=== PATIENT | female | born 1990 | race African-American/Black ===

== ENCOUNTER 2017-04-01 01:36 | Inpatient (IN) | payer OTHER ==
--- NOTE | 2017-04-01 03:17 | PDOC ---
Attending Attestation - Resident Resident Name: Xiomara Duckworth - ED Attending Attestation I have performed the following: I have examined & evaluated the patient, The case was reviewed & discussed with the resident, I agree w/resident's findings & plan, Exceptions are as noted - Physicial Exam PE: GENERAL: Awake, alert, and fully oriented. Appears uncomfortable. HEAD: No signs of trauma EYES: PERRLA, EOMI, sclera anicteric, conjunctiva clear ENT: Auricles normal inspection, hearing grossly normal, nares patent, oropharynx clear without exudates. Moist mucosa NECK: Normal ROM, supple, no lymphadenopathy, JVD, or masses LUNGS: +Splinting. Dec air entry due to splinting. Clear to auscultation bilaterally. No wheezes, and no crackles HEART: Regular rate and rhythm, normal S1 and S2, no murmurs, rubs or gallops ABDOMEN: Soft, nontender, normoactive bowel sounds. No guarding, no rebound. No masses EXTREMITIES: Normal range of motion, no edema. No clubbing or cyanosis. No cords, erythema, or tenderness NEUROLOGICAL: Cranial nerves II through XII grossly intact. Normal speech, normal gait SKIN: Warm, Dry, normal turgor, no rashes or lesions noted. - Medical Decision Making Pt approximately 5WGA with pleuritic L upper chest pain. She states the pain is worse if she coughs or takes a deep breath. No recent illness, fever, chills. Denies recent leg swelling. Patient is high risk for PE based on clinical eval. Discussed risks/benefits of CTA with patient, she agrees to the scan. <Yamilka Villalta - Last Filed: 04/01/17 03:53> - Resident Resident Name: Duckworth,Mary - [facility] HPI: 04/01/17 03:57 The patient is a 26 year old female, 5 weeks , G2A1, with a significant past medical history of seen in ED at [facility] yesterday (03/31) diagnosed with UTI, presenting to the Emergency Department with worsening chest pain and and LUQ abdominal pain since Saturday. She states the chest pain is constant and describes it as someone kneeling on her left chest, 10/10 in intensity, exacerbated by lying flat. She admits to one episode of palpitations this afternoon, and shortness of breath. She states that she went to [facility] yesterday for similar complaints, and only was worked up for a UTI as per urinalysis. She also admits to vaginal spotting. The patient has been taking tylenol for the pain with little relief. Her most recent ultrasound, 03/31, showed a sac in correct position. The patient denies lower extremity swelling or pain. Patient denies recent injury or immobilization. Patient denies dysuria, or vaginal discharge. Patient denies fever, cough, and chills. Patient denies nausea, vomiting, and diarrhea. GENERAL/CONSTITUTIONAL: No fever or chills. No weakness. HEAD, EYES, EARS, NOSE AND THROAT: No change in vision. No ear pain or discharge. No sore throat. GASTROINTESTINAL: No nausea, vomiting, diarrhea or constipation. GENITOURINARY: + vaginal spotting. No dysuria, frequency, or change in urination. CARDIOVASCULAR: + left chest pain, + palpitations, + shortness of breath. RESPIRATORY: No cough, wheezing, or hemoptysis. MUSCULOSKELETAL: No joint or muscle swelling or pain. No neck or back pain. SKIN: No rash NEUROLOGIC: No headache, vertigo, loss of consciousness, or change in strength/ sensation. ENDOCRINE: No increased thirst. No abnormal weight change. HEMATOLOGIC/LYMPHATIC: No anemia, easy bleeding, or history of blood clots. ALLERGIC/IMMUNOLOGIC: No hives or skin allergy. - Medical Decision Making 04/01/17 03:58 Documentation prepared by Soila Shaffer, acting as medical scheduler for Yamilka Villalta MD. <Soila Shaffer - Last Filed: 04/01/17 03:58>
--- NOTE | 2017-04-01 03:46 | PDOC ---
History of Present Illness - General Chief Complaint: Pain Stated Complaint: DIFFICULTY BREATHING Time Seen by Provider: 04/01/17 03:13 History Source: Patient Exam Limitations: No Limitations - History of Present Illness Initial Comments: This is a 26 yo female at 5 weeks 3 days who presents c/o left- sided chest pain and LUQ abdominal pain and shortness of breath. She had the onset of pain and shortness of breath simultaneously on Saturday night, and this awoke her from sleep. It is 10/10, feels like someone is kneeling on her chest, is constant and worsening and radiating to the left back. It worsens when she tries to lay down flat. She has taken only Tylenol for the pain and has never had pain like this before. She was seen at [facility] ED for the same thing yesterday night, at which time they did an ultrasound and also did a UA and diagnosed her with a UTI. They gave her one antibiotic pill in the department but did not prescribe her a home medication. She notes mild nausea, vaginal spotting, and possibly a small amount of blood in the urine. She denies any fever, chills, vomiting, diarrhea, constipation, burning on urination, vaginal discharge, black or bloody stool. She denies any h/o blood clotting problems, recent injury/surgery/immobility/travel, or leg pain/swelling. Past History - Past Medical History Allergies/Adverse Reactions: Allergies Allergy/AdvReac Type Severity Reaction Status Date / Time No Known Allergies Allergy Verified 04/01/17 02:04 Home Medications: Ambulatory Orders NK [No Known Home Medication] 04/01/17 Other medical history: Pt denies - Reproductive History Is Patient Now?: Yes (5 weeks) (#): 2 Para: 0 Therapeutic (s) & number: Yes (1) - Psycho/Social/Smoking Cessation Hx Suicidal Ideation: No Smoking History: Never smoked Information on smoking cessation initiated: No Hx Alcohol Use: No Drug/Substance Use Hx: No Substance Use Type: None Review of Systems - Review of Systems Constitutional: No: Chills, Fever, Unexplained wgt Loss HEENTM: No: Nose Congestion, Throat Pain Respiratory: Yes: Shortness of Breath. No: Cough Cardiac (ROS): Yes: Chest Pain. No: Palpitations ABD/GI: Yes: Nausea. No: Constipated, Diarrhea, Vomiting : Yes: Flank Pain, Hematuria, Other (vaginal spotting). No: Burning, Dysuria Musculoskeletal: Yes: Back Pain (left upper). No: Neck Pain Integumentary: No: Bruising, Rash Neurological: No: Headache, Numbness, Tingling, Weakness, Dizziness Endocrine: No: Unexplained Weight Gain, Unexplained Weight Loss *Physical Exam - Vital Signs Last Vital Signs Temp Pulse Resp BP Pulse Ox 99.0 F 99 H 20 149/70 99 04/01/17 02:04 04/01/17 02:04 04/01/17 02:04 04/01/17 02:04 04/01/17 02:04 - Physical Exam General Appearance: Yes: Nourished, Appropriately Dressed, Moderate Distress, Other (appears uncomfortable, splinting left chest with arms, able to converse) HEENT: positive: EOMI, Normal Voice, Hearing Grossly Normal. negative: Scleral Icterus (R), Scleral Icterus (L), Nasal Congestion Neck: positive: Trachea midline, Supple. negative: Tender, Rigid Respiratory/Chest: positive: Lungs Clear, Normal Breath Sounds, Other ( tachypneic but speaking in full sentences, minimal tenderness to palpation along left anterior and lateral costal margin). negative: Crackles, Rhonchi, Stridor, Wheezing Cardiovascular: positive: Regular Rhythm, Regular Rate. negative: Murmur Gastrointestinal/Abdominal: positive: Normal Bowel Sounds, Soft, Other (minimal epigastric and RUQ tenderness to palpation). negative: Tender, Organomegaly, Pulsatile Mass, Guarding Musculoskeletal: positive: Normal Inspection. negative: Decreased Range of Motion, Vertebral Tenderness Extremity: positive: Normal Capillary Refill, Normal Inspection, Normal Range of Motion. negative: Tender, Cyanosis Integumentary: positive: Normal Color, Dry, Warm. 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, Fully Oriented, Alert, Normal Mood/ Affect, Normal Response, Motor Strength 5/5 Heart Score/ECG Review - History History: Slightly suspicious - Electrocardiogram EKG: Normal - Age Age: </= 45 - Risk Factors Based on the list above the patient has:: No risk factors known - Troponin Troponin: </= normal limit - Score Heart Score - Total: 0 #1 ECG reviewed & interpreted by me at: 04:45 NSR, rate of 90, normal axis and intervals ED Treatment Course - LABORATORY CBC & Chemistry Diagram: 04/01/17 03:55 04/01/17 03:55 Medical Decision Making - Medical Decision Making 26 yo female at 5 weeks 3 days p/w left chest pain, LUQ pain, and shortness of breath. No recent immobility, injury, or surgery, no leg pain/swelling, no h/o clots. Exam notable for tachycardia, shallow rapid breathing, tenderness to palpation left chest wall. Also epigastric and RUQ mild ttp. DDX includes PE, UTI/pyelo, renal colic, PNA, pneumothorax, pancreatitis, gastritis. Ordered is CBCD, CMP, troponin, lipase, type&screen, PT/INR, UA w/ cx, Quant hCG , Chest CTA. Also ordered is IV Tylenol for pain control. WBC is 15.3, INR is 1.36, hCG is 9892, otherwise labs unremarkable, trop neg. EKG shows sinus tachycardia (rate of 90) without other acute abnormalities. The patient remains painful/tender with VS abnormalities. Suspicion for PE is high enough that the decision is made she must have chest CTA. BUN/Cr are wnl and the patient is sent to CT soon before sign out. Pt signed out to [facility] excellent Dr. Vishnu López. *DC/Admit/Observation/Transfer Diagnosis at time of Disposition: Pulmonary emboli Qualifiers: Qualified Code(s): I26.99 - Other pulmonary embolism without acute cor pulmonale - Referrals - Attestations Physician Attestion: 04/01/17 05:22 I, Dr. Xiomara Duckworth, attest that this document has been prepared under my direction and personally reviewed by me in its entirety. I further attest, that it accurately reflects all work, treatment, procedures and medical decision -making performed by me.
[2017-04-01] MEDS ORDERED: ACETAMINOPHEN 1000 MG/100 ML VIAL (NON FORMULARY) IVPB ONE ×2 (03:47→11:42)
[2017-04-01 04:03] LABS: BASOPHIL 0.4 % (0-2.0); EOSINOPHIL 0.5 % (0-4.5); MCH 28.3 pg (25.7-33.7); MCHC 33.7 g/dl (32.0-36.0); MEAN PLT VOLUME 7.2 fl (7.5-11.1); PLATELET COUNT 352 K/MM3 (134-434); RDW 14.3 % (11.6-15.6); WHITE BLOOD COUNT 15.3 K/mm3 (4.0-10.0)
[2017-04-01 04:20] LABS: INR 1.36 (0.82-1.09); PROTHROMBIN TIME (PATIENT) 15.1 SEC (9.98-11.88)
[2017-04-01 04:31] LABS: ALBUMIN 3.3 g/dl (3.4-5.0); ANION GAP 9 (8-16); BILIRUBIN,TOTAL 0.5 mg/dL (0.2-1.0); CALCIUM 8.5 mg/dL (8.5-10.1); CO2 26 mmol/L (21-32); CREATININE 0.7 mg/dL (0.55-1.02); GLUCOSE,RANDOM 112 mg/dL (74-106); SGOT/AST 7 U/L (15-37); SGPT/ALT 14 U/L (12-78); TOT PROT 7.1 g/dl (6.4-8.2)
[2017-04-01 04:34] LABS: ALK PHOS 69 U/L (45-117); TROPONIN I < 0.02 ng/ml (0.00-0.05)
[2017-04-01] MEDS ORDERED: ACETAMINOPHEN INJECTION 100 ML IVPB ONE ×2 (04:37→11:44)
[2017-04-01 05:44] LABS: URINE APPEARANCE CLEAR; URINE BILIRUBIN NEGATIVE (NEGATIVE); URINE BLOOD 3+ (NEGATIVE); URINE COLOR LT. YELLOW; URINE GLUCOSE (UA) NEGATIVE (NEGATIVE); URINE KETONE 2+ (NEGATIVE); URINE NITRITE NEGATIVE (NEGATIVE); URINE PROTEIN NEGATIVE (NEGATIVE); URINE UROBILINOGEN 0.2 mg/dL (0.2-1.0)
[2017-04-01 05:46] LABS: URINE LEUK ESTERASE 1+ (NEGATIVE)
[2017-04-01 06:31] LABS: URINE HYALINE CAST 1 /lpf; URINE MUCUS MANY; URINE RBC 2 /hpf (0-3); URINE WBC 28 /hpf (3-5)
--- NOTE | 2017-04-01 07:53 | PDOC ---
*Physical Exam - Vital Signs Last Vital Signs Temp Pulse Resp BP Pulse Ox 99.0 F 99 H 20 149/70 99 04/01/17 02:04 04/01/17 02:04 04/01/17 02:04 04/01/17 02:04 04/01/17 02:04 - Physical Exam General Appearance: Yes: Nourished, Mild Distress (pain, difficulty breathing) HEENT: positive: EOMI Respiratory/Chest: positive: Labored Respiration, Decreased Breath Sounds ( bilaterally), Other (Patient sitting still, avoiding movement). negative: Crackles, Wheezing, Hyperresonant, Dullness, Plerual Rub Cardiovascular: positive: Regular Rhythm, Regular Rate Female Pelvic Exam: positive: normal external exam, cervical os closed, normal size ovaries, vaginal bleeding (moderate blood in vaginal vault). negative: lesions, adnexal tenderness Gastrointestinal/Abdominal: negative: Tender, Distended, Guarding Rectal Exam: positive: normal exam, normal rectal tone, other (no jen blood) Musculoskeletal: positive: Normal Inspection Extremity: positive: Normal Inspection Integumentary: positive: Normal Color, Dry, Warm. 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 yellow Urine Appearance Clear Urine pH 6.0 Urine Protein Negative Urine Glucose (UA) Negative Urine Ketones 2+ H Urine Blood 3+ H Urine Nitrite Negative Urine Bilirubin Negative Urine Urobilinogen 0.2 Ur Leukocyte Esterase 1+ H Urine RBC 2 Urine WBC 28 Ur Epithelial Cells Few Hyaline Casts 1 Urine Mucus Many Blood Type B POSITIVE Antibody Screen Negative 04/01/17 04/01/17 03:55 03:55 INR Sodium 135 L Potassium 3.9 Chloride 100 Carbon Dioxide 26 Anion Gap 9 BUN 5 L Creatinine 0.7 Creat Clearance w eGFR > 60 Random Glucose 112 H Calcium 8.5 Total Bilirubin 0.5 AST 7 L ALT 14 Alkaline Phosphatase 69 Troponin I < 0.02 Total Protein 7.1 Albumin 3.3 L Lipase 78 Beta HCG, Quant 9892.2 Urine Color Urine Appearance Urine pH Urine Protein Urine Glucose (UA) Urine Ketones Urine Blood Urine Nitrite Urine Bilirubin Urine Urobilinogen Ur Leukocyte Esterase Urine RBC Urine WBC Ur Epithelial Cells Hyaline Casts Urine Mucus Blood Type Antibody Screen 04/01/17 03:55 RBC 4.25 MCV 84.0 MCHC 33.7 RDW 14.3 MPV 7.2 L Neutrophils % 83.0 H Lymphocytes % 10.5 Monocytes % 5.6 Eosinophils % 0.5 Basophils % 0.4 - RADIOLOGY Radiograph Interpretation: [id number] CT/CHEST CTA CT angiogram of the chest: HISTORY: Pleuritic chest pain. Tachycardia. High risk for pulmonary embolism. CT angiogram of the chest was performed with intravenous contrast. 90 cc of Omnipaque 350 was administered intravenously. Axial images were obtained from the thoracic inlet through the lung bases utilizing pulmonary embolism protocol. Coronal and sagittal reconstructions are also provided. There are acute bilateral pulmonary emboli predominantly involving proximal, mid , and distal lower lobe pulmonary vessels. Many of the pulmonary emboli are occlusive. There is a pulmonary infiltrate in the left lower lobe which could reflect pulmonary infarction. Small to moderate left pleural effusion is noted as well. IMPRESSION: Bilateral acute pulmonary emboli as described above. Pulmonary infiltrate in the left lower lobe which could represent pulmonary infarction. See above. [id number] US/TRANSVAGINAL US PREG HISTORY PROVIDED: evaluation. Real time examination of the pelvis utilizing both the transabdominal and transvaginal probes demonstrates the following: There is a single, live intrauterine with crown-rump measurements corresponding to a gestational age of 5 weeks 6 days. The gestational sac is within the lower uterine segment and the possibility of an impending , particularly in light of the history of vaginal bleeding, should be considered. A low heart rate of 91 BPM was calculated. The bradycardia may be related to technical difficulties in evaluating the heart rate during this early stage of . Clinical correlation and follow-up is again advised. The ovaries are normal in size and texture with arterial flow documented to both ovaries. There is a small cyst within the left ovary measuring 1.7 x 1.5 x 2.4 cm. There is no evidence of adnexal masses or free pelvic fluid collections. IMPRESSION: Single, live intrauterine of 5 weeks 6 days gestational age. The gestational sac is within the lower uterine segment and there is a low heart rate. The possibility of impending should be considered. Clinical correlation and follow-up recommended. Please see above discussion. - Medications Given in the ED: ED Medications Discontinued Medications Generic Name Dose Route Start Last Admin Trade Name Teresa PRN Reason Stop Dose Admin Acetaminophen 1,000 mg 04/01/17 03:47 04/01/17 04:39 Ofirmev Injection - IVPB 04/01/17 03:48 1,000 mg ONCE ONE Administration Progress Note - Progress Note Progress Note: Patient is stable @ 5w3d received by sign-out from Xiomara Duckworth who presented with left chest pain and difficulty breathing. Patient was also tachycardic and found to have an elevated WBC A CTA was performed and shows a left lower lobe consolidation suspected to be PNA Wait official CTA results, +/- US Appropriate abx for based on CTA read - (outpt: amox/augmentum + axithro, inpt: ceftri/cefotaz + azithro) Medical Decision Making - Medical Decision Making 04/01/17 07:52 26 yo @ 5w3d with CP and SOB for 3 days and possible left lower lobe PNA by unofficial read but also concerning for possible PE Wait results +/- US Pain control Consider admission pending results 04/01/17 08:08 Patient complaining of increased sob and pain, pain management with Tylenol 04/01/17 08:09 CTA was positive for acute bilateral PE and pulmonary infiltrate in the left lower lobe 04/01/17 08:17 Patient endorsed recent vaginal bleeding (1 hr prior to presenting), prefer AC is heparin for quick reversal Consulted control tower radio operator (Dr. Jones) regarding use of heparin vs Lovenox who did not prefer one over the other and indicated the priority should be on treating the mother. Patient is stable but having increased pain Patient put back on monitor EKG Started Heparin infusion Morphine Repeat vitals PTT 04/01/17 08:[address] Madsen who approved admission to [facility] 04/01/17 08:50 Completed a pelvic exam, moderate blood in the vaginal vault, cervix closed, no adenexal masses. Performed transthoracic/transabdominal ultrasounds, no concerning signs for right heart strain, good contractility, questionable intrauterine gestational sack, no yoke sack visualized, no RUQ free fluid Performed rectal exam for occult blood - per heparin protocol - no jen blood 04/01/17 10:33 Reevaluated patient, stated her pain is coming back but is bearable at this time Patient sent for transvaginal US. 04/01/17 11:36 US shows single IUP with low heart rate, possibility of impending . 04/01/17 11:51 Patient C/O increased pain. Tylenol and Morphine Patient sent to floor *DC/Admit/Observation/Transfer Diagnosis at time of Disposition: Pulmonary emboli Qualifiers: Pulmonary embolism type: other Chronicity: acute Acute cor pulmonale presence: without acute cor pulmonale Qualified Code(s): I26.99 - Other pulmonary embolism without acute cor pulmonale - Discharge Dispostion Admit: Yes - Referrals - Patient Instructions - Post Discharge Activity
[2017-04-01] MEDS ORDERED: KETOROLAC TROMETHAMINE 60 MG/2 ML VIAL ONE (08:03)
[2017-04-01] MEDS ORDERED: diazePAM 5 MG TABLET ONE (08:03)
[2017-04-01] MEDS ORDERED: HEPARIN NA (PORCINE) 5,000 UNITS/ML 1ML VIAL IVPUSH PRN (08:15)
[2017-04-01] MEDS ORDERED: morphine CARPU-JECT 4 MG/1 ML DISP.SYRIN IVPUSH ONE ×2 (08:17→11:49)
[2017-04-01] MEDS ORDERED: HEPARIN NA (PORCINE) 5,000 UNITS/ML 1ML VIAL ONE (08:27)
[2017-04-01] MEDS ORDERED: HEPARIN INFUSION - 500 ML IVPB ONE (08:27)
[2017-04-01] MEDS ORDERED: morphine CARPU-JECT 4 MG/1 ML DISP.SYRIN ONE ×2 (08:28→11:51)
[2017-04-01] MEDS: HEPARIN INFUSION - 500 ML IVPB SCH ×3 (08:34→21:16)
--- NOTE | 2017-04-01 08:36 | PDOC ---
*Physical Exam - Vital Signs Last Vital Signs Temp Pulse Resp BP Pulse Ox 99.0 F 99 H 20 149/70 99 04/01/17 02:04 04/01/17 02:04 04/01/17 02:04 04/01/17 02:04 04/01/17 02:04 - Physical Exam General Appearance: Yes: Nourished HEENT: positive: Normal ENT Inspection Neck: positive: Trachea midline Respiratory/Chest: positive: Lungs Clear, Other (tachypnea) Cardiovascular: positive: Regular Rhythm, Regular Rate, S1, S2 Musculoskeletal: positive: Normal Inspection Neurologic: positive: Fully Oriented, Alert, Normal Mood/Affect Heart Score/ECG Review #1 General ECG Interpretation: Sinus Rhythm, Normal Rate (83bpm), Normal Intervals , No acute ischemic changes (q wave III, flat T wave III,) Compared to previous ECG there are: Previous ECG unavail ED Treatment Course - LABORATORY CBC & Chemistry Diagram: 04/01/17 03:55 04/01/17 03:55 - ADDITIONAL ORDERS Additional order review: Laboratory Results 04/01/17 04/01/17 04/01/17 05:30 03:55 03:55 INR 1.36 H Sodium Potassium Chloride Carbon Dioxide Anion Gap BUN Creatinine Creat Clearance w eGFR Random Glucose Calcium Total Bilirubin AST ALT Alkaline Phosphatase Troponin I Total Protein Albumin Lipase Beta HCG, Quant Urine Color Lt. yellow Urine Appearance Clear Urine pH 6.0 Urine Protein Negative Urine Glucose (UA) Negative Urine Ketones 2+ H Urine Blood 3+ H Urine Nitrite Negative Urine Bilirubin Negative Urine Urobilinogen 0.2 Ur Leukocyte Esterase 1+ H Urine RBC 2 Urine WBC 28 Ur Epithelial Cells Few Hyaline Casts 1 Urine Mucus Many Blood Type B POSITIVE Antibody Screen Negative 04/01/17 04/01/17 03:55 03:55 INR Sodium 135 L Potassium 3.9 Chloride 100 Carbon Dioxide 26 Anion Gap 9 BUN 5 L Creatinine 0.7 Creat Clearance w eGFR > 60 Random Glucose 112 H Calcium 8.5 Total Bilirubin 0.5 AST 7 L ALT 14 Alkaline Phosphatase 69 Troponin I < 0.02 Total Protein 7.1 Albumin 3.3 L Lipase 78 Beta HCG, Quant 9892.2 Urine Color Urine Appearance Urine pH Urine Protein Urine Glucose (UA) Urine Ketones Urine Blood Urine Nitrite Urine Bilirubin Urine Urobilinogen Ur Leukocyte Esterase Urine RBC Urine WBC Ur Epithelial Cells Hyaline Casts Urine Mucus Blood Type Antibody Screen 04/01/17 03:55 RBC 4.25 MCV 84.0 MCHC 33.7 RDW 14.3 MPV 7.2 L Neutrophils % 83.0 H Lymphocytes % 10.5 Monocytes % 5.6 Eosinophils % 0.5 Basophils % 0.4 - RADIOLOGY Radiology Studies Ordered: Category Date Time Status TRANSVAGINAL US PREG [US] Stat Ultrasound 04/01/17 07:19 Ordered - Medications Given in the ED: ED Medications Discontinued Medications Generic Name Dose Route Start Last Admin Trade Name Teresa PRN Reason Stop Dose Admin Acetaminophen 1,000 mg 04/01/17 03:47 04/01/17 04:39 Ofirmev Injection - IVPB 04/01/17 03:48 1,000 mg ONCE ONE Administration Medical Decision Making - Medical Decision Making 04/01/17 08:33 pt signed out to me at 7 am. briefly ( 1 prior ab) here at 5 weeks ( no prior ectopic , no h/o prior PE or dvt) pt awaiting ct results for pleuritic cp. ct positive for multiple lower lobes PE. ekg performed. noted 83 bpm, q1ukuwxced t wave III, otherwise unremarkable. started on heparin ( vs. lovenox ) due to reported vaginal bleeding. pt /ptt sent. will perform bedside TTE r/.o RV strain. will admit to hospitalist. d/w dr enciso. also consulted OB cirilli 04/01/17 09:30 PE: pt much more comfortable with morphine. oxygen saturation 100 percent. pelvic exam performed with Dr López, blood in vaginal vault, no clots. cervix open mm, no adnexal tendernes.s no CMT. focused ED TTE performed, indication Ro RV strain finding: four views of heart obtained, ( parasternal long and short, subxiphoid and apical) no signs of rv enlargement or rv strain. good contractility of LV no pericardial effusion impression: normal TTE, no RV enlargement or strain. bedside transabdominal OB uterus with fluid, possible gestational sac, no yolk sac visible, left incidental adnexal cyst no free fluid. ruq no free fluid impression: no visible IUP, recommend TVUS followup. *DC/Admit/Observation/Transfer Diagnosis at time of Disposition: Pulmonary emboli - Referrals - Patient Instructions - Post Discharge Activity
[2017-04-01 12:56] VITALS: BMI 28.8
[2017-04-01] MEDS ORDERED: ACETAMINOPHEN 325 MG TABLET (FP) PO PRN ×2 (15:04→17:18)
--- NOTE | 2017-04-01 15:43 | CONSULT ---
Consult - text type - Consultation Consultation Note: This is a 26 yo female at 5 weeks 3 days who presents c/o left- sided chest pain and LUQ abdominal pain and shortness of breath. She had the onset of pain and shortness of breath simultaneously on Saturday night, and this awoke her from sleep. It is 10/10, feels like someone is kneeling on her chest, is constant and worsening and radiating to the left back. It worsens when she tries to lay down flat. She has taken only Tylenol for the pain and has never had pain like this before. She was seen at [facility] ED for the same thing yesterday night, at which time they did an ultrasound and also did a UA and diagnosed her with a UTI. They gave her one antibiotic pill in the department but did not prescribe her a home medication. She notes mild nausea, vaginal spotting, and possibly a small amount of blood in the urine. She denies any fever, chills, vomiting, diarrhea, constipation, burning on urination, vaginal discharge, black or bloody stool. She denies any h/o blood clotting problems, recent injury/surgery/immobility/travel, or leg pain/swelling. Past History 1 in 2014 Allergies/Adverse Reactions: Allergies Allergy/AdvReac Type Severity Reaction Status Date / Time No Known Allergies Allergy Verified 04/01/17 02:04 Home Medications: Ambulatory Orders NK [No Known Home Medication] 04/01/17 - Psycho/Social/Smoking Cessation Hx Smoking History: Never smoked Family - Vital Signs Last Vital Signs Temp Pulse Resp BP Pulse Ox 98.6 F 72 20 131/69 100 04/01/17 12:47 04/01/17 12:47 04/01/17 12:47 04/01/17 12:47 04/01/17 12:56 Cor: RSR, No murmurs, No gallops Lungs: decreased lt. breath sounds at base Abd: Soft, Normal bowel sounds, No organomegaly Ext:No significant edema Abnormal Lab Results 04/01/17 04/01/17 04/01/17 03:55 03:55 03:55 WBC 15.3 H MPV 7.2 L Neutrophils % 83.0 H INR 1.36 H Sodium 135 L BUN 5 L Random Glucose 112 H AST 7 L Albumin 3.3 L Urine Ketones Urine Blood Ur Leukocyte Esterase 04/01/17 05:30 WBC MPV Neutrophils % INR Sodium BUN Random Glucose AST Albumin Urine Ketones 2+ H Urine Blood 3+ H Ur Leukocyte Esterase 1+ H A/P 26 y/o patient with Lt. sided chest pain/SOB , diagnosed with bilateral LL PE Provoked Vaginal spotting 5 weeks change management specialist to f/u Discussed with will continue heparin drip and titrate per protocol monitor respiratory status, bleeding based on clinical course, may need to be switched to lovenox based on discharge if unable to anticoagulate will need to consider ivc filter monitor
[2017-04-01] MEDS: HEPARIN NA (PORCINE) 5,000 UNITS/ML 1ML VIAL IVPUSH PRN (16:33)
[2017-04-01] MEDS: ACETAMINOPHEN 650 MG/20.3 ML ORAL SOLUTION (CUPS) PO PRN ×2 (17:24→23:23)
--- NOTE | 2017-04-01 18:38 | CONSULT ---
Consult - Past Medical History ...LMP: 02/15/17 ...: Yes (5 weeks) - Alcohol/Substance Use Hx Alcohol Use: Yes (1 week ago) - Smoking History Smoking history: Never smoked Have you smoked in the past 12 months: Yes Aproximately how many cigarettes per day: 5 If you are a former smoker, when did you quit?: X5 DAYS AGO Home Medications - Allergies Allergies/Adverse Reactions: Allergies Allergy/AdvReac Type Severity Reaction Status Date / Time No Known Allergies Allergy Verified 04/01/17 02:04 - Home Medications Home Medications: Ambulatory Orders NK [No Known Home Medication] 04/01/17 Physical Exam Vital Signs: Vital Signs Temperature 98.6 F 04/01/17 12:47 Pulse Rate 72 04/01/17 12:47 Respiratory Rate 20 04/01/17 12:47 Blood Pressure 131/69 04/01/17 12:47 O2 Sat by Pulse Oximetry (%) 100 04/01/17 12:56 Assessment/Plan VAscular Surgery This is a 26 yo female at 5 weeks 3 days who presents c/o left- sided chest pain and LUQ abdominal pain and shortness of breath. She had the onset of pain and shortness of breath simultaneously on Saturday night, and this awoke her from sleep. It is 10/10, feels like someone is kneeling on her chest, is constant and worsening and radiating to the left back. It worsens when she tries to lay down flat. She has taken only Tylenol for the pain and has never had pain like this before. She was seen at [facility] ED for the same thing yesterday night, at which time they did an ultrasound and also did a UA and diagnosed her with a UTI. They gave her one antibiotic pill in the department but did not prescribe her a home medication. She notes mild nausea, vaginal spotting, and possibly a small amount of blood in the urine. She denies any fever, chills, vomiting, diarrhea, constipation, burning on urination, vaginal discharge, black or bloody stool. She denies any h/o blood clotting problems, recent injury/surgery/immobility/travel, or leg pain/swelling. PE head - NC/At Lung - CTA , complains of pain in left chest. Heart - RRR abd - soft,nt,nd ext - soft, no calf tenderness. A/P Pt 5 weeks now with PE On IV heparin. may need to be changed to lovenox upon DC. ethernet network architect eval. Will order bilateral lower ext duplex to rule out DVt for complete workup. Cont IV heparin for now Iftikhar Last DO
--- NOTE | 2017-04-01 20:33 | HP ---
Admitting History and Physical - Primary Care Physician PCP: Monserrat Madsen - Admission History of Present Illness: 26 year old female, 5 weeks , G2A1, with a significant past medical history of seen in ED at [facility] yesterday (03/31) diagnosed with UTI, presenting to the Emergency Department with worsening chest pain and and LUQ abdominal pain since Saturday. She states the chest pain is constant and describes it as someone kneeling on her left chest, 10/10 in intensity, exacerbated by lying flat. She admits to one episode of palpitations this afternoon, and shortness of breath. She states that she went to [facility] yesterday for similar complaints, and only was worked up for a UTI as per urinalysis. She also admits to vaginal spotting. The patient has been taking tylenol for the pain with little relief. Her most recent ultrasound, 03/31, showed a sac in correct position. The patient denies lower extremity swelling or pain. Patient denies recent injury or immobilization. Patient denies dysuria, or vaginal discharge. Patient denies fever, cough, and chills. Patient denies nausea, vomiting, and diarrhea. - Past Medical History ...LMP: 02/15/17 ...: Yes (5 weeks) - Smoking History Smoking history: Never smoked Have you smoked in the past 12 months: Yes Aproximately how many cigarettes per day: 5 If you are a former smoker, when did you quit?: X5 DAYS AGO - Alcohol/Substance Use Hx Alcohol Use: Yes (1 week ago) Home Medications - Allergies Allergies/Adverse Reactions: Allergies Allergy/AdvReac Type Severity Reaction Status Date / Time No Known Allergies Allergy Verified 04/01/17 02:04 - Home Medications Home Medications: Ambulatory Orders NK [No Known Home Medication] 04/01/17 Physical Examination Vital Signs: Vital Signs Temperature 98.6 F 04/01/17 12:47 Pulse Rate 72 04/01/17 12:47 Respiratory Rate 20 04/01/17 12:47 Blood Pressure 131/69 04/01/17 12:47 O2 Sat by Pulse Oximetry (%) 100 04/01/17 12:56 Constitutional: Yes: No Distress HENT: Yes: Atraumatic Neck: Yes: Supple Cardiovascular: Yes: Regular Rate and Rhythm Respiratory: Yes: CTA Bilaterally Gastrointestinal: Yes: Normal Bowel Sounds Extremities: Yes: WNL Neurological: Yes: Alert, Oriented
--- NOTE | 2017-04-01 20:53 | PN ---
Teaching Attending Note Name of Resident: Harpreet Sanchez ATTENDING PHYSICIAN STATEMENT I saw and evaluated the patient. I reviewed the resident's note and discussed the case with the resident. I agree with the resident's findings and plan as documented. SUBJECTIVE: 26F at 5W 3 Days gestation who presented with chest pain. Pain was located on her left side and has associated abdominal pain. Also, noticed associated shortness of breath. Abdominal pain was located on her left side. Pain began Saturday night and awoke her from sleep. States pain feels like someone is kneeling on her chest. States she was recently at [facility] yesterday night, where she was diagnosed with a UTI. Has small amounts of blood in her urine and has associated nausea. No fevers or chills, no vomiting or diarrhea. Denies any recent travel, injuries, or surgeries. Denies any family history of clotting disorders. States she ambulates well at home and is not immobile for long periods of time. OBJECTIVE: Physical: VS: Vital Signs Period Temp Pulse Resp BP Sys/Louis Pulse Ox Last 24 Hr 98.6 F-99.0 F 72-99 20-22 122-149/69-71 99-100 GEN: NAD, Resting in bed HEENT: NCAT, PERRL CARD: RRR S2, S2 RESP: CTAB ABD: BSX4, NTD to palpation EXT: - C/C/E CTA: Bilateral acute PE involving proximal, mid, and distal lower lobe. Many of ASSESSMENT AND PLAN: 26 who presents with L. sided chest pain and shortness of breath, found to have bilateral PE and UTI 1.) Provoked PE in setting of - C/W Hep. gtt - Lovenox upon d/c - FU LE Duplex - ECHO complete 2.) UTI - Ucx - Ceftriaxone 3.) 5W3D - Guidance Consultant on consult - Monitor close for bleeding Place in Obs
[2017-04-01] MEDS ORDERED: CEFTRIAXONE 1 GM in DEXTROSE 5%-WATER - 50 ML IVPB ONE (22:00)
--- NOTE | 2017-04-01 22:04 | PN ---
Progress Note, Physician History of Present Illness: 26yo F G2A1 who is about 5 weeks seen for L sided nonradiating chest pain that started a day ago. When the pain started, patient began to be SOB and the pain would be exacerbated by deep breathing. Pt notes going to [facility] ED who discharged her for UTI only. Pt was seen in this ED for the same pain and was found to - Current Medication List Current Medications: Active Medications Acetaminophen (Tylenol Oral Solution -) 650 mg PO Q6H PRN PRN Reason: FEVER OR PAIN Last Admin: 04/01/17 17:24 Dose: 650 mg Heparin Sodium (Porcine) (Heparin -) 1,000 unit IVPUSH PRN PRN PRN Reason: Heparin Last Admin: 04/01/17 16:33 Dose: 1,000 unit Heparin Sodium (Porcine) (Heparin -) 5,000 unit IVPUSH PRN PRN PRN Reason: Heparin Last Admin: 04/01/17 08:34 Dose: 5,000 unit Heparin Sodium/Dextrose (Heparin Infusion -) 500 mls @ 20 mls/hr IVPB TITR RANDOLPH ; 1,000 UNITS/HR PRN Reason: Protocol Last Admin: 04/01/17 21:16 Dose: 22 mls/hr Ceftriaxone Sodium 1 gm/ (Dextrose) 50 mls @ 100 mls/hr IVPB ONCE ONE Stop: 04/01/17 22:29 - Objective Vital Signs: Vital Signs Temperature 98.6 F 04/01/17 12:47 Pulse Rate 72 04/01/17 12:47 Respiratory Rate 20 04/01/17 12:47 Blood Pressure 131/69 04/01/17 12:47 O2 Sat by Pulse Oximetry (%) 100 04/01/17 12:56 Labs: INR, PTT INR 1.36 (0.82-1.09) H 04/01/17 03:55
[2017-04-01] MEDS ORDERED: cefTRIAXone SODIUM 1 GM VIAL ONE (22:28)
[2017-04-01] MEDS ORDERED: DEXTROSE 5%-WATER - 50 ML IVPB ONE (22:28)
--- NOTE | 2017-04-01 22:28 | HP ---
Admitting History and Physical - Primary Care Physician PCP: Dr. Marcelo - Admission Chief Complaint: CP and SOB History of Present Illness: 26 yo G2A1 F who is 5 weeks presents with L-sided, non-radiating, severe CP, SOB, and LUQ pain. Pt describes the chest pain as 10/10 and like an elephant is sitting on her chest. She notes the pain starting on Saturday03/29/17 and developing the SOB at the same time. She says the pain is exacerbated by lying flat and with non-shallow breathing. Pt states she was seen at [facility] ED on 03/31, however was only discharged with the diagnosis of UTI. Pt does not report being discharged with any PO antibiotics for treatment of her UTI. Pt notes the pain did not go away and became increasingly worse so she came to this facility. Pt denies any bleeding or clotting disorders, long travel trips by car or by plane, lower extremity swelling or pain, dysuria, vaginal discharge , n/v/d/c, and recent surgeries. Pt also reports vaginal spotting recently. She received an ultrasound 03/31 showing a sac in correct position and nothing of concern. ER Course notable for: 1) B-HCG of 9892 consistent with current 2) UA consistent with UTI 3) Tranvaginal ultrasound showing a live intrauterine consistent with 5weeks 4) EKG - NSR at a rate of 83. Q-wave noted in lead III, no ST abnormalities seen. 5) Chest CTA revealing b/l acute pulmonary emboli involving proximal, mid, and distal lower lobe vessels; pleural effusions noted History Source: Patient Limitations to Obtaining History: No Limitations - Past Medical History ...LMP: 02/15/17 ...: Yes (5 weeks) - Smoking History Smoking history: Former smoker Have you smoked in the past 12 months: Yes Aproximately how many cigarettes per day: 5 (Quit with ) If you are a former smoker, when did you quit?: X5 DAYS AGO - Alcohol/Substance Use Hx Alcohol Use: Yes (1 week ago) - Social History History of Recent Travel: No Home Medications - Allergies Allergies/Adverse Reactions: Allergies Allergy/AdvReac Type Severity Reaction Status Date / Time No Known Allergies Allergy Verified 04/01/17 02:04 - Home Medications Home Medications: Ambulatory Orders NK [No Known Home Medication] 04/01/17 Physical Examination Vital Signs: Vital Signs Temperature 98.6 F 04/01/17 12:47 Pulse Rate 72 04/01/17 12:47 Respiratory Rate 20 04/01/17 12:47 Blood Pressure 131/69 04/01/17 12:47 O2 Sat by Pulse Oximetry (%) 100 04/01/17 12:56 Constitutional: Yes: Well Nourished, Mild Distress Cardiovascular: Yes: Regular Rate and Rhythm, S1, S2. No: Murmur Respiratory: Yes: Regular, On Nasal O2 (NC 2L), Other (Upper breath sounds without wheezing or rhonchi, hard to assess due to pain with increased depth of breathing.). No: Accessory Muscle Use Gastrointestinal: Yes: Soft. No: Tenderness Extremities: No: Calf Tenderness, Erythema Edema: No Peripheral Pulses WNL: Yes Neurological: Yes: Alert, Oriented Psychiatric: Yes: Alert, Oriented Imaging - Results Chest X-ray: Image Reviewed Cat Scan: Report Reviewed, Image Reviewed Assessment/Plan 26yo F G2A1 currently with 5week fetus seen for CP, SOB, found to have multiple PE's on CTA. Pt has already been initiated on Heparin drip 1) PE --Most likely related to high estrogen state from and previous smoking --No history of clotting disorders in family or pt and first episode of PE --Will have pt follow-up for blood work-up on outpatient basis --Echocardiogram ordered to assess any cardiac strain --Continue Heparin drip per protocol; aPTT assessment per protocol --Cannot use Warfarin due to risk --Will need to transition to Lovenox once aPTT is at therapeutic level for outpatient treatment --Pain control; limited to 650mg Tylenol due to risk --Duplex of b/l Lower extremities ordered; will f/u --Dr. Last and Dr. Vailente consults reviewed; appreciate recommendations 2) UTI --Ceftriaxone 1gm IV administered --Will transition to PO at a later point --Urine Cx pending; will f/u 3) 5weeks 3 days --Executive Officer Special Warfare Team consult --Monitor for bleeding/worsening of spotting --Avoid teratogenic agents FEN: Fluids: Not needed currently Electrolyte abnormalities: None Nutrition: Regular as tolerated Dispo: Admit; continue current management on M/S floor Visit type - Emergency Visit Emergency Visit: No - New Patient This patient is new to me today: Yes Date on this admission: 04/02/17 - Critical Care Critical Care patient: No
[2017-04-02] MEDS: HEPARIN INFUSION - 500 ML IVPB SCH ×3 (06:37→19:29)
[2017-04-02] MEDS: ACETAMINOPHEN 650 MG/20.3 ML ORAL SOLUTION (CUPS) PO PRN ×2 (07:17→22:02)
--- NOTE | 2017-04-02 10:06 | PN ---
Physical Exam: SUBJECTIVE: Patient seen and examined, reports pleuritic chest pain and mild vaginal bleeding OBJECTIVE: patient is a 26 y/o female, 5 weeks gestation, g2,p0,a1, she was admitted from the emergency department for bilateral pulmonary embolism. Vital Signs Period Temp Pulse Resp BP Sys/Louis Pulse Ox Last 24 Hr 98.2 F-98.6 F 72-98 20-20 122-142/67-75 100-100 GENERAL: The patient is awake, alert, and fully oriented, in no acute distress. HEAD: Normal with no signs of trauma. EYES: PERRL, extraocular movements intact, sclera anicteric, conjunctiva clear. No ptosis. ENT: Ears normal, nares patent, oropharynx clear without exudates, moist mucous membranes. NECK: Trachea midline, full range of motion, supple. LUNGS: Breath sounds equal, clear to auscultation bilaterally, diminished to base, shallow breathing, rr 24, no wheezes, no crackles, no accessory muscle use. HEART: Regular rate and rhythm, S1, S2 without murmur, rub or gallop. ABDOMEN: Soft, nontender, nondistended, normoactive bowel sounds, no guarding, no rebound, no hepatosplenomegaly, no masses. EXTREMITIES: 2+ pulses, warm, well-perfused, no edema. NEUROLOGICAL: Cranial nerves II through XII grossly intact. Normal speech, gait not observed. PSYCH: Normal mood, normal affect. SKIN: Warm, dry, normal turgor, no rashes or lesions noted Laboratory Results - last 24 hr 04/01/17 04/01/17 14:45 19:59 PTT (Actin FS) 47.1 H D 55.3 H Active Medications Generic Name Dose Route Start Last Admin Trade Name Freq PRN Reason Stop Dose Admin Acetaminophen 650 mg 04/01/17 17:19 04/02/17 07:17 Tylenol Oral Solution - PO 650 mg Q6H PRN Administration FEVER OR PAIN Heparin Sodium (Porcine) 1,000 unit 04/01/17 08:15 04/01/17 16:33 Heparin - IVPUSH 1,000 unit PRN PRN Administration Heparin Heparin Sodium (Porcine) 5,000 unit 04/01/17 08:15 04/01/17 08:34 Heparin - IVPUSH 5,000 unit PRN PRN Administration Heparin Heparin Sodium/Dextrose 500 mls @ 20 mls/hr 04/01/17 08:15 04/02/17 06:37 Heparin Infusion - IVPB 22 mls/hr TITR RANDOLPH Administration Protocol 1,000 UNITS/HR Microbiology 04/01/17 05:30 Urine - Urine Clean Catch Urine Culture - Final Contaminated: Please Repeat IMAGING cta of chest: billateral pulmonary emboli, pulmonary infilitrate in left lower lobe ? 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 - New Patient This patient is new to me today: Yes Date on this admission: 04/02/17 - Critical Care Critical Care patient: No - Discharge Referral Referred to [facility] Med P.C.: No
--- NOTE | 2017-04-02 11:21 | CON.PULM ---
Consult Consult Specialty:: PULMONARY Referred by:: CHRIS Hanson Reason for Consultation:: pulmonary emboli - History of Present Illness Chief Complaint: chest pain History of Present Illness: 26yo female 5 weeks who was admitted with sudden onset of shortness of breath and left sided chest pain starting 4 days ago. She had gone to another ER , where they diagnosed her with a UTI and discharged. Reports increased shortness of breath and reduced exercise tolerance. Chest pain worse with inspiration. CTA chest performed showing bilateral pulmonary emboli. Duplex negative for DVT. She denies fevers, chills or sweats. No cough or wheezing. No personal history of clots but reports a prior miscarriage and her mother has had miscarriages as well. No hormone therapy, she smoked cigarettes up until 2 weeks ago. Denies leg swelling or pain. Denies any prolonged immobilization. - History Source History Provided By: Patient, Medical Record Limitations to Obtaining History: No Limitations - Past Medical History ...LMP: 02/15/17 ...: Yes (5 weeks) - Alcohol/Substance Use Hx Alcohol Use: Yes (1 week ago) - Smoking History Smoking history: Former smoker Have you smoked in the past 12 months: Yes Aproximately how many cigarettes per day: 5 (Quit with ) If you are a former smoker, when did you quit?: X5 DAYS AGO - Social History History of Recent Travel: No Home Medications - Allergies Allergies/Adverse Reactions: Allergies Allergy/AdvReac Type Severity Reaction Status Date / Time No Known Allergies Allergy Verified 04/01/17 02:04 - Home Medications Home Medications: Ambulatory Orders NK [No Known Home Medication] 04/01/17 Family Disease History - Family Disease History Other Family History: no history of clots, mother with miscarriage Review of Systems - Review of Systems Constitutional: denies: Chills, Fever Eyes: denies: Recent Change in Vision HENT: denies: Nasal Congestion, Throat Pain Neck: denies: Stiffness, Tenderness Cardiovascular: reports: Chest Pain, Palpitations, Shortness of Breath Respiratory: reports: SOB, SOB on Exertion. denies: Cough, Hemoptysis, Wheezing Gastrointestinal: denies: Abdominal Pain, Nausea, Vomiting Genitourinary: denies: Dysuria, Hematuria Neurological: denies: Dizziness, Headache Endocrine: denies: Unexplained Weight Gain, Unexplained Weight Loss Physical Exam Vital Sings: Vital Signs Temperature 98.5 F 04/02/17 09:15 Pulse Rate 85 04/02/17 09:15 Respiratory Rate 20 04/02/17 09:15 Blood Pressure 122/69 04/02/17 09:15 O2 Sat by Pulse Oximetry (%) 100 04/01/17 21:00 Constitutional: Yes: Mild Distress (mildly tachypneic at rest) Eyes: Yes: Conjunctiva Clear, EOM Intact HENT: Yes: Atraumatic, Normocephalic Neck: Yes: Supple, Trachea Midline Cardiovascular: Yes: Tachycardia Respiratory: Yes: Diminished (decreased, poor effort), Other (shallow breaths) ...Clubbing: No Gastrointestinal: Yes: Normal Bowel Sounds, Soft. No: Tenderness Extremities: No: Calf Tenderness Edema: No Neurological: Yes: Alert, Oriented Imaging - Results Cat Scan: Report Reviewed, Image Reviewed (bilateral pulmonary emboli with LLL infiltrate) Problem List - Problems (1) Pulmonary emboli Code(s): I26.99 - OTHER PULMONARY EMBOLISM WITHOUT ACUTE COR PULMONALE Qualifiers: Pulmonary embolism type: other Chronicity: acute Acute cor pulmonale presence: without acute cor pulmonale Qualified Code(s): I26.99 - Other pulmonary embolism without acute cor pulmonale (2) 5 weeks gestation of Code(s): Z3A.01 - LESS THAN 8 WEEKS GESTATION OF (3) Vaginal bleeding in Code(s): O46.90 - ANTEPARTUM HEMORRHAGE, UNSPECIFIED, UNSPECIFIED TRIMESTER (4) Pulmonary infarct Code(s): I26.99 - OTHER PULMONARY EMBOLISM WITHOUT ACUTE COR PULMONALE Assessment/Plan Bilateral Pulmonary Emboli Likely Pulmonary Infarct 5 weeks Vaginal Bleeding - continue anticoagulation - echocardiogram - can defer antibiotics - DIVE MASTER eval for bleeding - monitor H/H - may need IVC filter if unable to anticoagulate due to bleeding - incentive spirometry - pain control - will need hypercoagulable work up as outpt Thank you for this consult Burak Barone MD
[2017-04-02] MEDS ORDERED: morphine CARPU-JECT 4 MG/1 ML DISP.SYRIN IVPUSH ONE ×2 (11:45→14:00)
--- NOTE | 2017-04-02 12:03 | PN ---
Progress Note (short form) - Note Progress Note: Patient seen and examined. No overnight events She mentions that she does continue to have mild vaginal spotting and she mentioned that she was told that there is a possibility that the might not hold. She does have pleuritic chest pain on the left side No hemoptysis. O/E: Young woman in no acute distress RRR Poor inspiratory effort No abd tenderness No LE swelling AAOx3. Last Vital Signs Temp Pulse Resp BP Pulse Ox 98.5 F 85 20 122/69 100 04/02/17 09:15 04/02/17 09:15 04/02/17 09:15 04/02/17 09:15 04/01/17 21:00 Current Medications Generic Name Dose Route Start Last Admin Trade Name Freq PRN Reason Stop Dose Admin Acetaminophen 650 mg 04/01/17 17:19 04/02/17 07:17 Tylenol Oral Solution - PO 650 mg Q6H PRN Administration FEVER OR PAIN Heparin Sodium (Porcine) 1,000 unit 04/01/17 08:15 04/01/17 16:33 Heparin - IVPUSH 1,000 unit PRN PRN Administration Heparin Heparin Sodium (Porcine) 5,000 unit 04/01/17 08:15 04/01/17 08:34 Heparin - IVPUSH 5,000 unit PRN PRN Administration Heparin Heparin Sodium/Dextrose 500 mls @ 20 mls/hr 04/01/17 08:15 04/02/17 11:38 Heparin Infusion - IVPB Not Given TITR RANDOLPH Protocol 1,000 UNITS/HR CBC, BMP 04/01/17 03:55 04/01/17 03:55 INR, PTT INR 1.36 (0.82-1.09) H 04/01/17 03:55 Assessment/Plan: Acute bilateral PE first trimester with mild vaginal bleeding . -likely provoked -has a 11week loss with the prior , will order APS labs, if LA positive or anti-bodies positive , will need a confirmatory in 12weeks -will continue with heparin with PTT monitoring, would suggest not to change to lovenox yet as she has vaginal spotting and ? status of the fetus -will continue heparin drip and titrate per protocol -monitor respiratory status, bleeding -considering her young age, preg loss earlier, though she has risk factors for provoked, OP hypercoag w/u recommended -LE doppler negative for DVT -if unable to anticoagulate will need to consider ivc filter -Seen by Pulm/Vascular consults ,appreciated recs -TTE -OBGYN f/u Will follow. discussed with Hospitalist.
[2017-04-02] MEDS ORDERED: ACETAMINOPHEN 1000 MG/100 ML VIAL (NON FORMULARY) IVPB ONE (13:58)
[2017-04-02] MEDS: HEPARIN NA (PORCINE) 5,000 UNITS/ML 1ML VIAL IVPUSH PRN (14:06)
[2017-04-02] MEDS ORDERED: morphine CARPU-JECT 4 MG/1 ML DISP.SYRIN ONE (16:32)
[2017-04-03] MEDS: ACETAMINOPHEN 650 MG/20.3 ML ORAL SOLUTION (CUPS) PO PRN (03:55)
[2017-04-03] MEDS: HEPARIN INFUSION - 500 ML IVPB SCH ×4 (03:55→22:36)
[2017-04-03] MEDS ORDERED: ACETAMINOPHEN 650 MG/20.3 ML ORAL SOLUTION (CUPS) PO PRN (08:12)
[2017-04-03 08:18] LABS: MCH 27.9 pg (25.7-33.7); MCHC 33.2 g/dl (32.0-36.0); MEAN CELL VOLUME 83.9 fl (80-96); MEAN PLT VOLUME 7.6 fl (7.5-11.1); PLATELET COUNT 421 K/MM3 (134-434); RDW 14.7 % (11.6-15.6); WHITE BLOOD COUNT 17.1 K/mm3 (4.0-10.0)
--- NOTE | 2017-04-03 08:21 | PN ---
Physical Exam: SUBJECTIVE: Patient seen and examined this AM. No acute overnight events. Pt states she is feeling sligthly better, still has L sided CP, pleuritic. Has not noticed more vaginal bleeding today. Denies new headache, leg pain, epigastric pain, blurry vision, numbness, tingling, nausea, vomiting. Pt complaining of gas pain. COMMERCIAL COLLECTOR to see patient today. OBJECTIVE: Vital Signs Period Temp Pulse Resp BP Sys/Louis Pulse Ox Last 24 Hr 98.5 F-99.4 F 85-96 20-40 122-141/62-87 98-99 GEN: AAOx3, Pt had cold compress on her head, NAD, lokos more comfortable than yesterday HEENT: PERRLA, EOMi, no LAD LUNG: CTABL, no labored breathing CV: S1, S2, RRR, no murmurs, TTp in L chest ABD: Soft, TTP, pt complains of gas, nondistended, normoactive BS EXT: 2+ pulses, no edema NEURO: CN 2-12, no sensory and muscular deficits, no facial droop. Laboratory Results - last 24 hr 04/02/17 04/02/17 11:45 17:45 PTT (Actin FS) 42.7 H 72.0 H D Active Medications Generic Name Dose Route Start Last Admin Trade Name Teresa PRN Reason Stop Dose Admin Acetaminophen 650 mg 04/03/17 08:12 Tylenol Oral Solution - PO Q4H PRN FEVER OR PAIN Heparin Sodium (Porcine) 1,000 unit 04/01/17 08:15 04/02/17 14:06 Heparin - IVPUSH 1,000 unit PRN PRN Administration Heparin Heparin Sodium (Porcine) 5,000 unit 04/01/17 08:15 04/01/17 08:34 Heparin - IVPUSH 5,000 unit PRN PRN Administration Heparin Heparin Sodium/Dextrose 500 mls @ 20 mls/hr 04/01/17 08:15 04/03/17 03:55 Heparin Infusion - IVPB 24 mls/hr TITR RANDOLPH Administration Protocol 1,000 UNITS/HR ASSESSMENT/PLAN: 26yo F A1 currently with 5week fetus seen for CP, SOB. CTA chest shows billateral pulmonary emboli, pulmonary infilitrate in left lower lobe - possible ? pulm infarct. Pt has already been initiated on Heparin drip # Bilateral PE - Negative BLLE dopplers - Pending echo - Continue heparin - monitor vag bleeding, if severe possible IVC filter, trend H/H - PO Tylenol, consider IV Tylenol and IV morphine - Heme/Onc - f/u APLA Ab (personal + fam hx), if positive, needs confirmatory in 12 weeks - Heme/Onc suggests not changing to lovenox due to spotting and ? status - clinical education manager input appreciated - Pt needs outpatient hypercoag workup - Pulmonary - Agree w/ the plan # UTI - repeat urine culture ordered, first contaminated - continue rocephin 1 gm iv # Low HR - TV ultrasound reviewed, pt made aware of low heart rate - appreciate CROWN BLOCKER input # FEN: - Fluids: Not needed currently - Electrolyte abnormalities: None - Nutrition: Regular as tolerated # Prophylaxis - DVT: On heparin drip - GI: Not needed - Deconditioning: PT on hold for now until patient feels better, order when pt improves # Dispo - Continue heparin, if bleeding worsens --> IVC filter - Await clinical education manager reccs on outpatient anticoag + pain control - Await APLA
[2017-04-03] MEDS ORDERED: morphine CARPU-JECT 4 MG/1 ML DISP.SYRIN ONE (08:41)
[2017-04-03] MEDS ORDERED: morphine CARPU-JECT 4 MG/1 ML DISP.SYRIN IVPUSH ONE (08:45)
--- NOTE | 2017-04-03 08:46 | CON.OBG ---
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 She was diagnosed with PE and Heparin started. Patient denies any significant family history. She admits to one prior . She was seen this morning, she has a nasal canula in place; she c/o chest pain. - History Source History Provided By: Patient Limitations to Obtaining History: No Limitations - Past Medical History ...LMP: 02/15/17 ...: Yes (5 weeks) - Past Surgical History Past Surgical History: Yes: None - Alcohol/Substance Use Hx Alcohol Use: No History of Substance Use: reports: None - Smoking History Smoking history: Never smoked Have you smoked in the past 12 months: Yes Aproximately how many cigarettes per day: 5 (Quit with ) If you are a former smoker, when did you quit?: X5 DAYS AGO - Social History Usual Living Arrangement: Alone History of Recent Travel: No Home Medications - Allergies Allergies/Adverse Reactions: Allergies Allergy/AdvReac Type Severity Reaction Status Date / Time No Known Allergies Allergy Verified 04/01/17 02:04 - Home Medications Home Medications: Ambulatory Orders NK [No Known Home Medication] 04/01/17 Family Disease History - Family Disease History Family History: Unremarkable Other Family History: no history of clots, mother with miscarriage Review of Systems - Review of Systems Constitutional: reports: No Symptoms Eyes: reports: No Symptoms HENT: reports: No Symptoms Neck: reports: No Symptoms Cardiovascular: reports: No Symptoms Respiratory: reports: SOB Gastrointestinal: reports: No Symptoms Genitourinary: reports: Other (Bloody discharge) Breasts: reports: No Symptoms Reported Neurological: reports: No Symptoms Endocrine: reports: No Symptoms Hematology/Lymphatic: reports: No Symptoms Psychiatric: reports: No Symptoms Pain Intensity: 5 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 Vital Signs: Vital Signs Temperature 99.4 F 04/03/17 06:00 Pulse Rate 92 H 04/03/17 06:00 Respiratory Rate 34 H 04/03/17 06:00 Blood Pressure 131/62 04/03/17 06:00 O2 Sat by Pulse Oximetry (%) 99 04/02/17 21:00 Constitutional: Yes: Well Nourished Eyes: Yes: Conjunctiva Clear HENT: Yes: Atraumatic Neck: Yes: Supple Cardiovascular: Yes: Regular Rate and Rhythm Respiratory: Yes: Regular, CTA Bilaterally Gastrointestinal: Yes: Normal Bowel Sounds External Genitalia: Yes: Normal Internal Exam Deferred: Yes Vaginal Exam: Yes: Other (bloody discharge) Breast(s): Yes: WNL Neurological: Yes: Alert, Oriented Psychiatric: Yes: Alert, Oriented Labs: CBC, BMP 04/03/17 07:20 Assessment/Plan Pulmonary embolism IUP @ 6 weeks gestation Vaginal bleeding in R/O Threatened Miscarriage Transvaginal sonogram recommended Patient counseled about the high risk nature of the
[2017-04-03] MEDS: HEPARIN NA (PORCINE) 5,000 UNITS/ML 1ML VIAL IVPUSH PRN ×2 (09:52→22:36)
--- NOTE | 2017-04-03 10:55 | PN ---
Progress Note (short form) - Note Progress Note: PULMONARY Still with shortness of breath and pleuritic chest pain. Echocardiogram without significant findings. Denies further vaginal bleeding. Last Vital Signs Temp Pulse Resp BP Pulse Ox 99.4 F 92 H 34 H 131/62 99 04/03/17 06:00 04/03/17 06:00 04/03/17 06:00 04/03/17 06:00 04/02/17 21:00 Gen: anxious, tachypneic Heart: RRR Lung: shallow breaths Abd: soft, nontender Ext: no edema CBC, BMP 04/03/17 07:20 04/01/17 03:55 Active Medications Acetaminophen (Tylenol Oral Solution -) 650 mg PO Q4H PRN PRN Reason: FEVER OR PAIN Acetaminophen (Ofirmev Injection -) 1,000 mg IVPB Q6H PRN PRN Reason: FEVER OR PAIN Stop: 04/04/17 04:53 Heparin Sodium (Porcine) (Heparin -) 1,000 unit IVPUSH PRN PRN PRN Reason: Heparin Last Admin: 04/03/17 09:52 Dose: 1,000 unit Heparin Sodium (Porcine) (Heparin -) 5,000 unit IVPUSH PRN PRN PRN Reason: Heparin Last Admin: 04/01/17 08:34 Dose: 5,000 unit Heparin Sodium/Dextrose (Heparin Infusion -) 500 mls @ 20 mls/hr IVPB TITR RANDOLPH ; 1,000 UNITS/HR PRN Reason: Protocol Last Admin: 04/03/17 09:50 Dose: 26 mls/hr A/P Bilateral Pulmonary Emboli Likely Pulmonary Infarct 5 weeks Vaginal Bleeding - continue anticoagulation - defer antibiotics - for repeat transvaginal ultrasound - monitor H/H - may need IVC filter if unable to anticoagulate due to bleeding - incentive spirometry - pain control - will need hypercoagulable work up as outpt Problem List - Problems (1) Pulmonary emboli Code(s): I26.99 - OTHER PULMONARY EMBOLISM WITHOUT ACUTE COR PULMONALE Qualifiers: Pulmonary embolism type: other Chronicity: acute Acute cor pulmonale presence: without acute cor pulmonale Qualified Code(s): I26.99 - Other pulmonary embolism without acute cor pulmonale (2) 5 weeks gestation of Code(s): Z3A.01 - LESS THAN 8 WEEKS GESTATION OF (3) Vaginal bleeding in Code(s): O46.90 - ANTEPARTUM HEMORRHAGE, UNSPECIFIED, UNSPECIFIED TRIMESTER (4) Pulmonary infarct Code(s): I26.99 - OTHER PULMONARY EMBOLISM WITHOUT ACUTE COR PULMONALE
--- NOTE | 2017-04-03 11:51 | PN ---
Physical Exam: SUBJECTIVE: Patient seen and examined. Her pain is mildly tolerable, unable to move due to pain, she reports cough with phlegm this AM. Has not been eating. Events: - Denies vagina bleeding this morning OBJECTIVE: Vital Signs Period Temp Pulse Resp BP Sys/Louis Pulse Ox Last 24 Hr 98.8 F-99.4 F 88-96 20-40 131-141/62-87 98-99 PE Neuro: alert, awake, cn 2-12intact, anxious, in pain Pulm: tachypnea, shallow breaths, + nc CV: s1 s2 rrr no mrg Abd: s nt nd + bs Ext: no le edema, calf pain, MSK: left sided chest tenderness spans from clavicle to substernal Laboratory Results - last 24 hr 04/02/17 04/02/17 04/03/17 11:45 17:45 07:20 WBC 17.1 H RBC 4.10 Hgb 11.4 Hct 34.4 MCV 83.9 MCH 27.9 MCHC 33.2 RDW 14.7 Plt Count 421 MPV 7.6 PTT (Actin FS) 42.7 H 72.0 H D 04/03/17 04/03/17 07:20 07:20 PTT (Actin FS) 44.7 H D LA PTT Baseline Pending dRVVT Confirm Interp Pending dRVVT Mixing Study Pending Active Medications Generic Name Dose Route Start Last Admin Trade Name Treesa PRN Reason Stop Dose Admin Acetaminophen 650 mg 04/03/17 08:12 Tylenol Oral Solution - PO Q4H PRN FEVER OR PAIN Acetaminophen 1,000 mg 04/03/17 10:52 Ofirmev Injection - IVPB 04/04/17 04:53 Q6H PRN FEVER OR PAIN Heparin Sodium (Porcine) 1,000 unit 04/01/17 08:15 04/03/17 09:52 Heparin - IVPUSH 1,000 unit PRN PRN Administration Heparin Heparin Sodium (Porcine) 5,000 unit 04/01/17 08:15 04/01/17 08:34 Heparin - IVPUSH 5,000 unit PRN PRN Administration Heparin Heparin Sodium/Dextrose 500 mls @ 20 mls/hr 04/01/17 08:15 04/03/17 09:50 Heparin Infusion - IVPB 26 mls/hr TITR RANDOLPH Administration Protocol 1,000 UNITS/HR Imaging: CTA chest: bilateral pulmonary emboli, pulmonary infiltrate in left lower lobe ? infarct ECHO: LV nml size, fxn, no wall motion, RV nml, ?mild posterior MV prolapse Assessment: 26 year old admitted 5 weeks gestation with bilateral pulmonary emboli Plan: 1. Acute Bilateral PE - Likely provoked d/t - Continue Heparin gtt - Will possible need IVC filter if bleeding persists - APS labs pending, if LA + or ab+ will need confirmatory test in 12 weeks per heme - PRN morphine - Tylenol 1gm IV q6 - DVT doppler neg 2. 6 weeks gestation - Repeat vaginal US shows viable , HR 123 - OB following - Will need to discuss with pt regarding keeping, this AM expressed possibly wish to terminate due to pain and high risk status 3. UTI - Urine cx pending - If positive will start macrobid Visit type - Emergency Visit Emergency Visit: Yes ED Registration Date: 04/01/17 Care time: The patient presented to the Emergency Department on the above date and was hospitalized for further evaluation of their emergent condition. - New Patient This patient is new to me today: Yes Date on this admission: 04/03/17 - Critical Care Critical Care patient: No
[2017-04-03] MEDS: ACETAMINOPHEN 1000 MG/100 ML VIAL (NON FORMULARY) IVPB PRN ×2 (12:58→19:08)
--- NOTE | 2017-04-03 13:45 | PN ---
Progress Note (short form) - Note Progress Note: Patient seen and examined. No overnight events no further bleeding noted She continues to have pleuritic pain. O/E: Young woman in no acute distress RRR Poor inspiratory effort No abd tenderness No LE swelling AAOx3. Last Vital Signs Temp Pulse Resp BP Pulse Ox 99.4 F 92 H 34 H 131/62 99 04/03/17 06:00 04/03/17 06:00 04/03/17 06:00 04/03/17 06:00 04/02/17 21:00 CBC, BMP 04/03/17 07:20 04/01/17 03:55 Current Medications Generic Name Dose Route Start Last Admin Trade Name Freq PRN Reason Stop Dose Admin Acetaminophen 650 mg 04/03/17 08:12 Tylenol Oral Solution - PO Q4H PRN FEVER OR PAIN Acetaminophen 1,000 mg 04/03/17 12:28 04/03/17 12:58 Ofirmev Injection - IVPB 04/04/17 06:29 1,000 mg Q6H PRN Administration FEVER OR PAIN Heparin Sodium (Porcine) 1,000 unit 04/01/17 08:15 04/03/17 09:52 Heparin - IVPUSH 1,000 unit PRN PRN Administration Heparin Heparin Sodium (Porcine) 5,000 unit 04/01/17 08:15 04/01/17 08:34 Heparin - IVPUSH 5,000 unit PRN PRN Administration Heparin Heparin Sodium/Dextrose 500 mls @ 20 mls/hr 04/01/17 08:15 04/03/17 09:50 Heparin Infusion - IVPB 26 mls/hr TITR RANDOLPH Administration Protocol 1,000 UNITS/HR Assessment/Plan: Acute bilateral PE first trimester with mild vaginal bleeding . -likely provoked -has a 11week loss with the prior , will order APS labs, if LA positive or anti-bodies positive , will need a confirmatory in 12weeks -will continue with heparin with PTT monitoring, would suggest not to change to lovenox yet as she has vaginal spotting and pending ? status of the fetus -will continue heparin drip and titrate per protocol -monitor respiratory status, bleeding -considering her young age, preg loss earlier, though she has risk factors for provoked, OP hypercoag w/u recommended -LE doppler negative for DVT -if unable to anticoagulate will need to consider ivc filter -Seen by Pulm/Vascular consults ,appreciated recs -TTE reviewed -OBGYN f/u noted Will follow. discussed with Hospitalist.
--- NOTE | 2017-04-03 16:49 | EKG ---
Test Reason : Blood Pressure : / mmHG Vent. Rate : 083 BPM Atrial Rate : 083 BPM P-R Int : 132 ms QRS Dur : 086 ms QT Int : 372 ms P-R-T Axes : 030 020 039 degrees QTc Int : 437 ms SINUS RHYTHM WITH MARKED SINUS ARRHYTHMIA OTHERWISE NORMAL ECG NO PREVIOUS ECGS AVAILABLE Confirmed by SID MADDEN MD ([id number]) on 04/03/2017 4:49:17 PM Referred By: Confirmed By:SID MADDEN MD
--- NOTE | 2017-04-03 16:50 | EKG ---
Test Reason : Blood Pressure : / mmHG Vent. Rate : 090 BPM Atrial Rate : 090 BPM P-R Int : 142 ms QRS Dur : 078 ms QT Int : 366 ms P-R-T Axes : 043 035 032 degrees QTc Int : 447 ms POOR DATA QUALITY, INTERPRETATION MAY BE ADVERSELY AFFECTED NORMAL SINUS RHYTHM NORMAL ECG NO PREVIOUS ECGS AVAILABLE Confirmed by SID MADDEN MD ([id number]) on 04/03/2017 4:49:33 PM Referred By: Confirmed By:SID MADDEN MD
[2017-04-04] MEDS: ACETAMINOPHEN 1000 MG/100 ML VIAL (NON FORMULARY) IVPB PRN ×3 (00:56→18:08)
--- NOTE | 2017-04-04 02:05 | PN ---
Progress Note (short form) - Note Progress Note: 26 yo with intrauterine , on heparin for PE diagnosis. Patient had a repeat Transvaginal sonogram that shows evidence of a 6 w 1 d gestation with positive FHR ( EDC 11/26/2017 ) Patient should be started on vitamins. Heparin therapy should be continued and changed to Lovenox as outpatient.
[2017-04-04] MEDS: HEPARIN NA (PORCINE) 5,000 UNITS/ML 1ML VIAL IVPUSH PRN (05:09)
[2017-04-04] MEDS: HEPARIN INFUSION - 500 ML IVPB SCH (08:24)
[2017-04-04 08:40] LABS: MCH 28.8 pg (25.7-33.7); MCHC 34.1 g/dl (32.0-36.0); MEAN CELL VOLUME 84.3 fl (80-96); MEAN PLT VOLUME 7.7 fl (7.5-11.1); PLATELET COUNT 464 K/MM3 (134-434); RDW 14.2 % (11.6-15.6); WHITE BLOOD COUNT 15.7 K/mm3 (4.0-10.0)
[2017-04-04 08:57] LABS: ANION GAP 8 (8-16); CALCIUM 8.9 mg/dL (8.5-10.1); CO2 29 mmol/L (21-32); CREATININE 0.5 mg/dL (0.55-1.02); GLUCOSE,RANDOM 99 mg/dL (74-106)
[2017-04-04] MEDS ORDERED: PT OWN MED DRAWER 7, Y5N ONE ×2 (11:14→20:36)
--- NOTE | 2017-04-04 11:21 | PN ---
Progress Note (short form) - Note Progress Note: PULMONARY Still with shortness of breath and pleuritic chest pain but slightly improved. Last Vital Signs Temp Pulse Resp BP Pulse Ox 99.8 F H 95 H 20 132/75 98 04/04/17 06:00 04/04/17 06:00 04/04/17 06:00 04/04/17 06:00 04/03/17 20:28 Gen: anxious, less tachypneic but still with shallow breaths Heart: RRR Lung: shallow breaths Abd: soft, nontender Ext: no edema CBC, BMP 04/04/17 07:30 04/04/17 07:30 Active Medications Acetaminophen (Tylenol Oral Solution -) 650 mg PO Q4H PRN PRN Reason: FEVER OR PAIN Acetaminophen (Ofirmev Injection -) 1,000 mg IVPB Q6H PRN PRN Reason: FEVER OR PAIN Stop: 04/05/17 02:33 Last Admin: 04/04/17 08:57 Dose: 1,000 mg Heparin Sodium (Porcine) (Heparin -) 1,000 unit IVPUSH PRN PRN PRN Reason: Heparin Last Admin: 04/04/17 05:09 Dose: 1,000 unit Heparin Sodium (Porcine) (Heparin -) 5,000 unit IVPUSH PRN PRN PRN Reason: Heparin Last Admin: 04/01/17 08:34 Dose: 5,000 unit Heparin Sodium/Dextrose (Heparin Infusion -) 500 mls @ 20 mls/hr IVPB TITR RANDOLPH ; 1,000 UNITS/HR PRN Reason: Protocol Last Admin: 04/04/17 08:24 Dose: Not Given Multivit/Folic Acid/Iron ( Vitamins (Sjr) -) 1 tab PO DAILY RANDOLPH A/P Bilateral Pulmonary Emboli Likely Pulmonary Infarct 5 weeks Vaginal Bleeding - continue anticoagulation, can start LMWH - defer antibiotics - monitor H/H - incentive spirometry - pain control - will need hypercoagulable work up as outpt - check ambulatory spO2 on room air to assess for home O2 when ready for discharge Problem List - Problems (1) Pulmonary emboli Code(s): I26.99 - OTHER PULMONARY EMBOLISM WITHOUT ACUTE COR PULMONALE Qualifiers: Pulmonary embolism type: other Chronicity: acute Acute cor pulmonale presence: without acute cor pulmonale Qualified Code(s): I26.99 - Other pulmonary embolism without acute cor pulmonale (2) 5 weeks gestation of Code(s): Z3A.01 - LESS THAN 8 WEEKS GESTATION OF (3) Vaginal bleeding in Code(s): O46.90 - ANTEPARTUM HEMORRHAGE, UNSPECIFIED, UNSPECIFIED TRIMESTER (4) Pulmonary infarct Code(s): I26.99 - OTHER PULMONARY EMBOLISM WITHOUT ACUTE COR PULMONALE
[2017-04-04] MEDS: PRENATAL VITAMINS W/ FOLIC ACID TABLET (FP) PO SCH (12:24)
--- NOTE | 2017-04-04 12:37 | PN ---
Physical Exam: SUBJECTIVE: Patient seen and examined. She is exerting herself more, feeling better, but decompensates without out. IV tylenol helping with pain. No morphine required. OBJECTIVE: Vital Signs Period Temp Pulse Resp BP Sys/Louis Pulse Ox Last 24 Hr 98 F-99.8 F 84-95 20-20 132-134/75-82 98 PE Neuro: alert, awake, cn 2-12intact Pulm: shallow breaths, + nc CV: s1 s2 rrr no mrg Abd: s nt nd + bs Ext: no le edema, warm well perfused MSK: left sided pleuretic pain- less Laboratory Results - last 24 hr 04/03/17 04/04/17 04/04/17 20:30 04:30 07:30 WBC 15.7 H RBC 3.84 Hgb 11.0 Hct 32.3 L MCV 84.3 MCH 28.8 MCHC 34.1 RDW 14.2 Plt Count 464 H MPV 7.7 PTT (Actin FS) 42.4 H 48.4 H Sodium Potassium Chloride Carbon Dioxide Anion Gap BUN Creatinine Random Glucose Calcium 04/04/17 04/04/17 04/04/17 07:30 07:30 10:45 WBC RBC Hgb Hct MCV MCH MCHC RDW Plt Count MPV PTT (Actin FS) 49.5 H 49.6 H Sodium 133 L Potassium 3.6 Chloride 96 L Carbon Dioxide 29 Anion Gap 8 BUN 7 D Creatinine 0.5 L D Random Glucose 99 Calcium 8.9 Active Medications Generic Name Dose Route Start Last Admin Trade Name Freq PRN Reason Stop Dose Admin Acetaminophen 650 mg 04/03/17 08:12 Tylenol Oral Solution - PO Q4H PRN FEVER OR PAIN Acetaminophen 1,000 mg 04/04/17 08:32 04/04/17 08:57 Ofirmev Injection - IVPB 04/05/17 02:33 1,000 mg Q6H PRN Administration FEVER OR PAIN Enoxaparin Sodium 80 mg 04/04/17 12:30 Lovenox - SQ Q12H RANDOLPH Multivit/Folic Acid/Iron 1 tab 04/04/17 10:00 04/04/17 12:24 Vitamins (Sjr) - PO 1 tab DAILY RANDOLPH Administration Imaging: CTA chest: bilateral pulmonary emboli, pulmonary infiltrate in left lower lobe ? infarct ECHO: LV nml size, fxn, no wall motion, RV nml, ?mild posterior MV prolapse Assessment: 26 year old admitted 5 weeks gestation with bilateral pulmonary emboli Plan: 1. Acute Bilateral PE - Likely provoked d/t - Stop heparin gtt - Start Lovenox 80mg BID - Continue supplemental o2 - Physical therapy requested - lupus, anticardiolipin, antiphospholipid panel pending, if LA + or ab+ will need confirmatory test in 12 weeks per heme - Tylenol 1gm IV q6 2. 6 weeks gestation - Repeat vaginal US shows viable , HR 123 - OB follow as outpt pt wishes to keep 3. UTI - Start Augmentin 875 BID x3 days Visit type - Emergency Visit Emergency Visit: Yes ED Registration Date: 04/01/17 Care time: The patient presented to the Emergency Department on the above date and was hospitalized for further evaluation of their emergent condition. - New Patient This patient is new to me today: No - Critical Care Critical Care patient: No
[2017-04-04] MEDS: ENOXAPARIN NA (PORCINE) 80 MG/0.8 ML DISP.SYRIN SQ SCH ×2 (13:17→21:24)
[2017-04-04] MEDS: AMOX TR/POT CLAV 875MG/125MG TABLETS (FP) PO SCH ×2 (13:17→21:24)
--- NOTE | 2017-04-04 15:41 | PN ---
Progress Note (short form) - Note Progress Note: Patient seen and examined. No overnight events no further bleeding noted pain better controlled O/E: Young woman in no acute distress RRR CTA b/l No abd tenderness No LE swelling AAOx3. Last Vital Signs Temp Pulse Resp BP Pulse Ox 98.2 F 101 H 20 138/76 98 04/04/17 14:51 04/04/17 14:51 04/04/17 09:00 04/04/17 14:51 04/04/17 09:00 CBC, BMP 04/04/17 07:30 04/04/17 07:30 Current Medications Generic Name Dose Route Start Last Admin Trade Name Freq PRN Reason Stop Dose Admin Acetaminophen 650 mg 04/03/17 08:12 Tylenol Oral Solution - PO Q4H PRN FEVER OR PAIN Acetaminophen 1,000 mg 04/04/17 08:32 04/04/17 08:57 Ofirmev Injection - IVPB 04/05/17 02:33 1,000 mg Q6H PRN Administration FEVER OR PAIN Amoxicillin/Clavulanate Potassium 1 tab 04/04/17 12:35 04/04/17 13:17 Augmentin - 875mg Tablet PO 1 tab BID@0800,1730 RANDOLPH Administration Enoxaparin Sodium 80 mg 04/04/17 13:00 04/04/17 13:17 Lovenox - SQ 80 mg BID RANDOLPH Administration Multivit/Folic Acid/Iron 1 tab 04/04/17 10:00 04/04/17 12:24 Vitamins (Sjr) - PO 1 tab DAILY RANDOLPH Administration Assessment/Plan: Acute bilateral PE first trimester -no further bleeding, repeat TVUS was reviewed by OBGYN -being changed to lovenox weight based -pt is high risk, better served in a medical center, discussed with , pt needs to be followed by high risk MFM at [facility]. -I called MFM high risk at [facility], spoke to Johnna ( fax no: [phone] and phone: [phone]), I have faxed all the information she has asked (TVUS, Face sheet, CT results) and informed that she is being treated for PE and necessary referrals will be made from there. I was informed that the chart will be reviewed by their physicians and pt will be given a call. I have also provided the pt the phone number of the [facility] numbers and asked her to give a call. Hypercoagulable w/u as an OP
[2017-04-05] MEDS: ACETAMINOPHEN 1000 MG/100 ML VIAL (NON FORMULARY) IVPB PRN (00:21)
[2017-04-05] MEDS: AMOX TR/POT CLAV 875MG/125MG TABLETS (FP) PO SCH ×3 (07:51→18:34)
[2017-04-05 08:31] LABS: BASOPHIL 0.2 % (0-2.0); EOSINOPHIL 1.4 % (0-4.5); MCH 27.7 pg (25.7-33.7); MCHC 33.2 g/dl (32.0-36.0); MEAN CELL VOLUME 83.5 fl (80-96); MEAN PLT VOLUME 7.6 fl (7.5-11.1); NEUTROPHILS 76.1 % (42.8-82.8); PLATELET COUNT 468 K/MM3 (134-434); RDW 14.2 % (11.6-15.6); WHITE BLOOD COUNT 13.9 K/mm3 (4.0-10.0)
[2017-04-05 08:39] LABS: ANION GAP 8 (8-16); CALCIUM 8.7 mg/dL (8.5-10.1); CO2 28 mmol/L (21-32); CREATININE 0.4 mg/dL (0.55-1.02); GLUCOSE,RANDOM 85 mg/dL (74-106)
[2017-04-05 10:15] LABS: LAC INTERPRETATION Comment: (.); PTT-LA MIX 52.2 sec (0.0-48.9)
[2017-04-05] MEDS: PRENATAL VITAMINS W/ FOLIC ACID TABLET (FP) PO SCH (10:20)
[2017-04-05] MEDS: ENOXAPARIN NA (PORCINE) 80 MG/0.8 ML DISP.SYRIN SQ SCH ×2 (10:21→21:18)
--- NOTE | 2017-04-05 12:57 | PN ---
Progress Note (short form) - Note Progress Note: PULMONARY DYSPNEIC AT REST O2 SAT 91% OFF O2 VSS/AFEBRILE ANICTERIC CHEST CLEAR S1S2 HR 100 BS+/ NO EDEMA LABS/MEDS/NOTES/IMAGING REVIEWED Bilateral Pulmonary Emboli Likely Pulmonary Infarct 5 weeks Vaginal Bleeding - continue anticoagulation LMWH - monitor H/H - incentive spirometry - pain control - will need hypercoagulable work up as outpt - not ready for discharge Problem List - Problems (1) Pulmonary emboli Code(s): I26.99 - OTHER PULMONARY EMBOLISM WITHOUT ACUTE COR PULMONALE Qualifiers: Pulmonary embolism type: other Chronicity: acute Acute cor pulmonale presence: without acute cor pulmonale Qualified Code(s): I26.99 - Other pulmonary embolism without acute cor pulmonale (2) 5 weeks gestation of Code(s): Z3A.01 - LESS THAN 8 WEEKS GESTATION OF (3) Vaginal bleeding in Code(s): O46.90 - ANTEPARTUM HEMORRHAGE, UNSPECIFIED, UNSPECIFIED TRIMESTER (4) Pulmonary infarct Code(s): I26.99 - OTHER PULMONARY EMBOLISM WITHOUT ACUTE COR PULMONALE Esha AREVALO MD
--- NOTE | 2017-04-05 13:37 | PN ---
Physical Exam: SUBJECTIVE: Patient seen and examined. She has some dried blood in nares today from oxygen. She was low 90's on RA. OBJECTIVE: Vital Signs Period Temp Pulse Resp BP Sys/Louis Pulse Ox Last 24 Hr 98.2 F-100.1 F 84-101 20-20 122-138/61-76 95-98 PE Neuro: alert, awake, cn 2-12intact Pulm: shallow breaths, clear, dyspnea with exertion CV: s1 s2 rrr Abd: s nt nd + bs Ext: no le edema, warm well perfused MSK: left sided pleuretic pain CBCD WBC 13.9 K/mm3 (4.0-10.0) H 04/05/17 06:40 RBC 3.85 M/mm3 (3.60-5.2) 04/05/17 06:40 Hgb 10.7 GM/dL (10.7-15.3) 04/05/17 06:40 Hct 32.1 % (32.4-45.2) L 04/05/17 06:40 MCV 83.5 fl (80-96) 04/05/17 06:40 MCHC 33.2 g/dl (32.0-36.0) 04/05/17 06:40 RDW 14.2 % (11.6-15.6) 04/05/17 06:40 Plt Count 468 K/MM3 (134-434) H 04/05/17 06:40 MPV 7.6 fl (7.5-11.1) 04/05/17 06:40 CMP Sodium 134 mmol/L (136-145) L 04/05/17 06:40 Potassium 4.0 mmol/L (3.5-5.1) 04/05/17 06:40 Chloride 98 mmol/L (98-107) 04/05/17 06:40 Carbon Dioxide 28 mmol/L (21-32) 04/05/17 06:40 Anion Gap 8 (8-16) 04/05/17 06:40 BUN 9 mg/dL (7-18) D 04/05/17 06:40 Creatinine 0.4 mg/dL (0.55-1.02) L 04/05/17 06:40 Creat Clearance w eGFR > 60 (>60) 04/01/17 03:55 Calcium 8.7 mg/dL (8.5-10.1) 04/05/17 06:40 Total Bilirubin 0.5 mg/dL (0.2-1.0) 04/01/17 03:55 AST 7 U/L (15-37) L 04/01/17 03:55 ALT 14 U/L (12-78) 04/01/17 03:55 Alkaline Phosphatase 69 U/L (45-117) 04/01/17 03:55 Total Protein 7.1 g/dl (6.4-8.2) 04/01/17 03:55 Albumin 3.3 g/dl (3.4-5.0) L 04/01/17 03:55 04/03/17 04/04/17 07:20 07:30 Lupus Anticoag PTT Mix 52.2 H LA PTT Baseline 54.9 H dRVVT Confirm Interp 41.3 dRVVT Mixing Study Pending Hexagonal Phospholipid 5 Anti-Cardiolipin IgG Ab Pending Anti-Cardiolipin IgA Ab Pending Anti-Cardiolipin IgM Ab Pending Active Medications Generic Name Dose Route Start Last Admin Trade Name Teresa PRN Reason Stop Dose Admin Acetaminophen 650 mg 04/03/17 08:12 04/05/17 07:05 Tylenol Oral Solution - PO 650 mg Q4H PRN Administration FEVER OR PAIN Amoxicillin/Clavulanate Potassium 1 tab 04/04/17 12:35 04/05/17 08:39 Augmentin - 875mg Tablet PO 1 tab BID@0800,1730 RANDOLPH Administration Enoxaparin Sodium 80 mg 04/04/17 13:00 04/05/17 10:21 Lovenox - SQ 80 mg BID RANDOLPH Administration Multivit/Folic Acid/Iron 1 tab 04/04/17 10:00 04/05/17 10:20 Vitamins (Sjr) - PO 1 tab DAILY RANDOLPH Administration Imaging: CTA chest: bilateral pulmonary emboli, pulmonary infiltrate in left lower lobe ? infarct ECHO: LV nml size, fxn, no wall motion, RV nml, ?mild posterior MV prolapse Assessment: 26 year old admitted 5 weeks gestation with bilateral pulmonary emboli Plan: 1. Acute Bilateral PE - Likely provoked d/t - Lovenox 80mg BID - Continue supplemental o2 - Anticardiolipin, antiphospholipid elevated, will need confirmatory test in 12 weeks per heme, referral made for high risk - Pre and post home o2 2. 6 weeks gestation - Paper work sent to [facility] for high risk (fax: [phone], phone: [phone])- will need appt on discharge - Repeat vaginal US shows viable , HR 123 3. UTI - Augmentin 875 BID day 2 of 5 Visit type - Emergency Visit Emergency Visit: Yes ED Registration Date: 04/01/17 Care time: The patient presented to the Emergency Department on the above date and was hospitalized for further evaluation of their emergent condition. - New Patient This patient is new to me today: No - Critical Care Critical Care patient: No
[2017-04-05] MEDS ORDERED: ACETAMINOPHEN 500 MG TABLET (FP) PO PRN (13:41)
--- NOTE | 2017-04-05 17:00 | PN ---
Progress Note (short form) - Note Progress Note: 26 yo with intrauterine , on heparin for PE diagnosis. Patient seen and evaluated, doing better. Nasal canula in place. PE : ABD : Soft, NT Pelvis : Vulva / Vagina : no bleeding, no discharge EXT : No calf tenderness A/P : IUP @ 6 weeks gestation Pulmonary embolism High risk desired Advised to follow up at [facility] or [facility] for care
--- NOTE | 2017-04-05 20:31 | PN ---
Progress Note (short form) - Note Progress Note: Patient seen and examined. No overnight events looks dyspenic today though pain better controlled O/E: Young woman in no acute distress RRR CTA b/l No abd tenderness No LE swelling AAOx3. Last Vital Signs Temp Pulse Resp BP Pulse Ox 98.1 F 116 H 20 126/70 95 04/05/17 15:23 04/05/17 18:46 04/05/17 15:23 04/05/17 15:23 04/05/17 18:46 Current Medications Generic Name Dose Route Start Last Admin Trade Name Freq PRN Reason Stop Dose Admin Acetaminophen 1,000 mg 04/05/17 13:41 Tylenol - PO Q6H PRN FEVER OR PAIN Amoxicillin/Clavulanate Potassium 1 tab 04/04/17 12:35 04/05/17 18:34 Augmentin - 875mg Tablet PO 1 tab BID@0800,1730 RANDOLPH Administration Enoxaparin Sodium 80 mg 04/04/17 13:00 04/05/17 10:21 Lovenox - SQ 80 mg BID RANDOLPH Administration Multivit/Folic Acid/Iron 1 tab 04/04/17 10:00 04/05/17 10:20 Vitamins (Sjr) - PO 1 tab DAILY RANDOLPH Administration CBC, BMP 04/05/17 06:40 04/05/17 06:40 Assessment/Plan: Acute bilateral PE first trimester -no further bleeding, repeat TVUS was reviewed by OBGYN -on lovenox weight based -on abx -CBC daily -Pulm note/OB note reviewed -f/u at [facility] ( see note from 04/04) for her /heme care due to high risk nature of the case.
[2017-04-05] MEDS ORDERED: PT OWN MED DRAWER 7, Y5N ONE (21:08)
[2017-04-06 09:03] LABS: BASOPHIL 0.3 % (0-2.0); EOSINOPHIL 1.5 % (0-4.5); MCH 28.2 pg (25.7-33.7); MCHC 33.7 g/dl (32.0-36.0); MEAN CELL VOLUME 83.7 fl (80-96); MEAN PLT VOLUME 7.5 fl (7.5-11.1); PLATELET COUNT 539 K/MM3 (134-434); RDW 14.2 % (11.6-15.6); WHITE BLOOD COUNT 11.5 K/mm3 (4.0-10.0)
[2017-04-06 09:33] LABS: ANION GAP 9 (8-16); CALCIUM 9.3 mg/dL (8.5-10.1); CO2 30 mmol/L (21-32); CREATININE 0.6 mg/dL (0.55-1.02); GLUCOSE,RANDOM 110 mg/dL (74-106); MAGNESIUM 2.3 mg/dL (1.8-2.4)
[2017-04-06] MEDS ORDERED: PT OWN MED DRAWER 7, Y5N ONE ×3 (09:52→21:14)
[2017-04-06] MEDS: PRENATAL VITAMINS W/ FOLIC ACID TABLET (FP) PO SCH (09:54)
[2017-04-06] MEDS: AMOX TR/POT CLAV 875MG/125MG TABLETS (FP) PO SCH ×2 (09:54→17:55)
[2017-04-06] MEDS: ENOXAPARIN NA (PORCINE) 80 MG/0.8 ML DISP.SYRIN SQ SCH ×2 (12:28→21:19)
--- NOTE | 2017-04-06 13:24 | PN ---
Progress Note (short form) - Note Progress Note: PULMONARY Shortness of breath and chest pain much improved. Last Vital Signs Temp Pulse Resp BP Pulse Ox 98.4 F 85 20 116/61 99 04/06/17 09:23 04/06/17 09:23 04/06/17 09:23 04/06/17 09:23 04/05/17 21:00 Gen: less tachypneic, able to speak normal sentences Heart: RRR Lung: decreased breath sounds at the bases Abd: soft, nontender Ext: no edema CBC, BMP 04/06/17 07:46 04/06/17 07:46 Active Medications Acetaminophen (Tylenol -) 1,000 mg PO Q6H PRN PRN Reason: FEVER OR PAIN Amoxicillin/Clavulanate Potassium (Augmentin - 875mg Tablet) 1 tab PO BID@0800, 1730 [facility] Last Admin: 04/06/17 09:54 Dose: 1 tab Enoxaparin Sodium (Lovenox -) 80 mg SQ BID [facility] Last Admin: 04/06/17 12:28 Dose: 80 mg Multivit/Folic Acid/Iron ( Vitamins (Sjr) -) 1 tab PO DAILY [facility] Last Admin: 04/06/17 09:54 Dose: 1 tab A/P Bilateral Pulmonary Emboli Likely Pulmonary Infarct 5 weeks Vaginal Bleeding - continue LMWH - monitor H/H - incentive spirometry - pain control - will need hypercoagulable work up as outpt - check ambulatory spO2 on room air to assess for home O2 when ready for discharge Problem List - Problems (1) Pulmonary emboli Code(s): I26.99 - OTHER PULMONARY EMBOLISM WITHOUT ACUTE COR PULMONALE Qualifiers: Pulmonary embolism type: other Chronicity: acute Acute cor pulmonale presence: without acute cor pulmonale Qualified Code(s): I26.99 - Other pulmonary embolism without acute cor pulmonale (2) 5 weeks gestation of Code(s): Z3A.01 - LESS THAN 8 WEEKS GESTATION OF (3) Vaginal bleeding in Code(s): O46.90 - ANTEPARTUM HEMORRHAGE, UNSPECIFIED, UNSPECIFIED TRIMESTER (4) Pulmonary infarct Code(s): I26.99 - OTHER PULMONARY EMBOLISM WITHOUT ACUTE COR PULMONALE
--- NOTE | 2017-04-06 14:54 | PN ---
Progress Note (short form) - Note Progress Note: PAtient seen and examined Doing well. 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
--- NOTE | 2017-04-06 17:04 | PN ---
Physical Exam: SUBJECTIVE: Patient seen and examined. No acute issues, her breathing appears improved OBJECTIVE: Vital Signs Period Temp Pulse Resp BP Sys/Louis Pulse Ox Last 24 Hr 97.9 F-98.4 F 85-116 18-20 116-131/61-78 95-99 PE Neuro: alert, awake, cn 2-12intact Pulm: shallow breaths- improving, clear CV: s1 s2 rrr Abd: s nt nd + bs Ext: no le edema, warm well perfused Laboratory Results - last 24 hr 04/04/17 04/06/17 04/06/17 07:30 07:46 07:46 WBC 11.5 H RBC 3.89 Hgb 11.0 Hct 32.6 MCV 83.7 MCH 28.2 MCHC 33.7 RDW 14.2 Plt Count 539 H MPV 7.5 Neutrophils % 72.0 Lymphocytes % 19.6 D Monocytes % 6.6 Eosinophils % 1.5 Basophils % 0.3 PTT (Actin FS) 33.5 Sodium Potassium Chloride Carbon Dioxide Anion Gap BUN Creatinine Random Glucose Calcium Magnesium Anti-Cardiolipin IgG Ab <9 Anti-Cardiolipin IgA Ab <9 Anti-Cardiolipin IgM Ab <9 04/06/17 07:46 WBC RBC Hgb Hct MCV MCH MCHC RDW Plt Count MPV Neutrophils % Lymphocytes % Monocytes % Eosinophils % Basophils % PTT (Actin FS) Sodium 135 L Potassium 4.0 Chloride 96 L Carbon Dioxide 30 Anion Gap 9 BUN 8 Creatinine 0.6 D Random Glucose 110 H D Calcium 9.3 Magnesium 2.3 Anti-Cardiolipin IgG Ab Anti-Cardiolipin IgA Ab Anti-Cardiolipin IgM Ab Active Medications Generic Name Dose Route Start Last Admin Trade Name Freq PRN Reason Stop Dose Admin Acetaminophen 1,000 mg 04/05/17 13:41 Tylenol - PO Q6H PRN FEVER OR PAIN Amoxicillin/Clavulanate Potassium 1 tab 04/04/17 12:35 04/06/17 09:54 Augmentin - 875mg Tablet PO 1 tab BID@0800,1730 RANDOLPH Administration Enoxaparin Sodium 80 mg 04/04/17 13:00 04/06/17 12:28 Lovenox - SQ 80 mg BID RANDOLPH Administration Multivit/Folic Acid/Iron 1 tab 04/04/17 10:00 04/06/17 09:54 Vitamins (Sjr) - PO 1 tab DAILY RANDOLPH Administration Imaging: CTA chest: bilateral pulmonary emboli, pulmonary infiltrate in left lower lobe ? infarct ECHO: LV nml size, fxn, no wall motion, RV nml, ?mild posterior MV prolapse Assessment: 26 year old admitted 5 weeks gestation with bilateral pulmonary emboli Plan: 1. Acute Bilateral PE - Likely provoked d/t - Lovenox 80mg BID - Continue supplemental o2, - Anticardiolipin, antiphospholipid elevated, will need confirmatory test in 12 weeks per heme, referral made for high risk - Pre and post home o2 again, will likely need home o2 2. 6 weeks gestation - Paper work sent to [facility] for high risk (fax: [phone], phone: [phone])- will need appt on discharge - Repeat vaginal US shows viable , HR 123 3. UTI - Augmentin 875 BID day 3 of 5 Dispo: - Anticipate DC home tomorrow pending o2 status Visit type - Emergency Visit Emergency Visit: Yes ED Registration Date: 04/01/17 Care time: The patient presented to the Emergency Department on the above date and was hospitalized for further evaluation of their emergent condition. - New Patient This patient is new to me today: No - Critical Care Critical Care patient: No
[2017-04-07 08:41] VITALS: BP 115/59; TEMP 98.1
[2017-04-07 08:55] LABS: BASOPHIL 0.3 % (0-2.0); MCH 28.4 pg (25.7-33.7); MCHC 33.5 g/dl (32.0-36.0); MEAN CELL VOLUME 84.9 fl (80-96); MEAN PLT VOLUME 7.5 fl (7.5-11.1); NEUTROPHILS 68.8 % (42.8-82.8); PLATELET COUNT 547 K/MM3 (134-434); RDW 14.3 % (11.6-15.6); WHITE BLOOD COUNT 11.3 K/mm3 (4.0-10.0)
[2017-04-07] MEDS: AMOX TR/POT CLAV 875MG/125MG TABLETS (FP) PO SCH (09:08)
[2017-04-07] MEDS: PRENATAL VITAMINS W/ FOLIC ACID TABLET (FP) PO SCH (09:27)
[2017-04-07] MEDS: ENOXAPARIN NA (PORCINE) 80 MG/0.8 ML DISP.SYRIN SQ SCH (09:27)
[2017-04-07 11:08] VITALS: PULSE 113
--- NOTE | 2017-04-07 11:11 | PN ---
Progress Note (short form) - Note Progress Note: PULMONARY Shortness of breath and chest pain much improved. Desaturated on room air. Last Vital Signs Temp Pulse Resp BP Pulse Ox 98.1 F 113 H 20 115/59 93 L 04/07/17 08:40 04/07/17 11:07 04/07/17 08:40 04/07/17 08:40 04/07/17 11:07 Gen: less tachypneic, able to speak normal sentences Heart: RRR Lung: decreased breath sounds at the bases Abd: soft, nontender Ext: no edema CBC, BMP 04/07/17 07:35 04/06/17 07:46 Active Medications Acetaminophen (Tylenol -) 1,000 mg PO Q6H PRN PRN Reason: FEVER OR PAIN Amoxicillin/Clavulanate Potassium (Augmentin - 875mg Tablet) 1 tab PO BID@0800, 1730 [facility] Last Admin: 04/07/17 09:08 Dose: 1 tab Enoxaparin Sodium (Lovenox -) 80 mg SQ BID [facility] Last Admin: 04/07/17 09:27 Dose: 80 mg Multivit/Folic Acid/Iron ( Vitamins (Sjr) -) 1 tab PO DAILY [facility] Last Admin: 04/07/17 09:27 Dose: 1 tab A/P Bilateral Pulmonary Emboli Likely Pulmonary Infarct 5 weeks Vaginal Bleeding - continue LMWH - incentive spirometry - pain control - hypercoagulable work up as outpt - home O2 Problem List - Problems (1) Pulmonary emboli Code(s): I26.99 - OTHER PULMONARY EMBOLISM WITHOUT ACUTE COR PULMONALE Qualifiers: Pulmonary embolism type: other Chronicity: acute Acute cor pulmonale presence: without acute cor pulmonale Qualified Code(s): I26.99 - Other pulmonary embolism without acute cor pulmonale (2) 5 weeks gestation of Code(s): Z3A.01 - LESS THAN 8 WEEKS GESTATION OF (3) Vaginal bleeding in Code(s): O46.90 - ANTEPARTUM HEMORRHAGE, UNSPECIFIED, UNSPECIFIED TRIMESTER (4) Pulmonary infarct Code(s): I26.99 - OTHER PULMONARY EMBOLISM WITHOUT ACUTE COR PULMONALE
--- NOTE | 2017-04-07 11:40 | DS ---
Physical Exam: SUBJECTIVE: Patient seen and examined. No acute issues overnight. She is improving. OBJECTIVE: Vital Signs Period Temp Pulse Resp BP Sys/Louis Pulse Ox Last 24 Hr 97.9 F-98.4 F 84-113 20-20 115-132/56-78 93-99 PE Neuro: alert, awake, cn 2-12intact Pulm: diminished, clear, able to take howe breaths CV: s1 s2 rrr Abd: s nt nd + bs Ext: no le edema, warm well perfused Laboratory Results - last 24 hr 04/07/17 04/07/17 07:35 07:35 WBC 11.3 H RBC 3.80 Hgb 10.8 Hct 32.3 L MCV 84.9 MCH 28.4 MCHC 33.5 RDW 14.3 Plt Count 547 H MPV 7.5 Neutrophils % 68.8 Lymphocytes % 21.4 Monocytes % 7.5 Eosinophils % 2.0 Basophils % 0.3 PTT (Actin FS) 32.1 HOSPITAL COURSE: Date of Admission:04/01/17 Date of Discharge: 04/07/17 Minutes to complete discharge: 36 Discharge Summary Reason For Visit: PULMONARY EMBOLISM Current Active Problems 5 weeks gestation of (Acute) Pulmonary emboli (Acute) Pulmonary infarct (Acute) Vaginal bleeding in (Acute) Hospital Course: Initial Hospital Course: 26F at 5W 3 Days gestation who presented with chest pain. Pain was located on her left side and has associated abdominal pain. Also, noticed associated shortness of breath. Abdominal pain was located on her left side. Pain began Saturday night and awoke her from sleep. States pain feels like someone is kneeling on her chest. States she was recently at [facility] yesterday night, where she was diagnosed with a UTI. Has small amounts of blood in her urine and has associated nausea. No fevers or chills, no vomiting or diarrhea. Denies any recent travel, injuries, or surgeries. Denies any family history of clotting disorders. States she ambulates well at home and is not immobile for long periods of time. Imaging: CTA chest: bilateral pulmonary emboli, pulmonary infiltrate in left lower lobe ? infarct ECHO: LV nml size, fxn, no wall motion, RV nml, ?mild posterior MV prolapse Subsequent Hospital Course/Progress Note/Discharge Summary by a/p: Assessment: 26 year old admitted 5 weeks gestation with bilateral pulmonary emboli Plan: 1. Acute Bilateral PE - Likely provoked d/t , however has elevated antiphospholipid elevated - Lovenox 80mg BID - Anticardiolipin, antiphospholipid elevated, will need confirmatory test in 12 weeks per heme, referral made for high risk - PT requiring supplemental oxygen, particularly with ambulation 2. 6 weeks gestation - Paper work sent to [facility] for high risk (fax: [phone], phone : [phone])- will need appt on discharge - Repeat vaginal US shows viable , HR 123 3. UTI - Augmentin 875 BID day 5 days total Dispo: - Home with o2 and meds above - Information for high risk [facility] [employer] [employer] [facility] above - Pt aware and agrees to above plan Condition: Stable - Instructions Diet, Activity, Other Instructions: Please return to the ED for any new, persistent, or worsening symptoms. Follow up with your PCP in 1 week Take lovenox injections twice per day as directed Make an appt to see the high risk specialist - Paper work sent to high risk [facility] [facility] at [facility] (fax: [phone], phone: [phone]) your paper work was sent to [facility] Continue oxygen use Complete antibiotics as directed Referrals: Iwona Marcelo MD [Primary Care Provider] - Love Barrett MD [Staff Physician] - Nena Jones MD [Staff Physician] - Disposition: HOME - Home Medications Comprehensive Discharge Medication List: Ambulatory Orders Enoxaparin [Lovenox -] 80 mg SQ BID #60 mg 04/05/17 This patient is new to me today: No Emergency Visit: Yes ED Registration Date: 04/01/17 Care time: The patient presented to the Emergency Department on the above date and was hospitalized for further evaluation of their emergent condition. Critical Care patient: No - Discharge Referral Referred to [facility] Med P.C.: No
[2017-04-07] MEDS ORDERED: AMOX TR/POT CLAV 875MG/125MG TABLETS (FP) PO ONE (13:12)
[2017-04-10 08:07] LABS: GLYCEROL IG-A 1.7 U/mL (<12.0); GLYCEROL IG-G 3.7 U/mL (<12.0); GLYCEROL IG-M 1.9 U/mL (<12.0)
== END 2017-04-07 14:33 | disposition home or self-care (01) | DRG 566 ==
LOC: JER 01:36 → JERBED 08:40 → J6S 12:36
PROVIDERS: ADMIT Internal Medicine; ATTEND Nurse Practitioner Acute Care
DX: O88.811 Other embolism in pregnancy, first trimester (principal); O46.8X1 Other antepartum hemorrhage, first trimester; O09.891 Supervision of other high risk pregnancies, first trimester; R00.0 Tachycardia, unspecified; R10.12 Left upper quadrant pain; N39.0 Urinary tract infection, site not specified; R06.02 Shortness of breath; Z87.891 Personal history of nicotine dependence; Z3A.01 Less than 8 weeks gestation of pregnancy
CPT/HCPCS: 36415; 71275-TC; 76817-TC; 76830-TC; 80048; 80053; 81003; 81015; 82272; 83690; 83735; 84484; 84702; 85025; 85027; 85610; 85613; 85730; 85732; 86850; 86900; 86901; 87086; 93005; 93010; 93306-TC; 93970-TC; 94761; 99284-25; J1644

== ENCOUNTER 2017-05-06 23:08 | Emergency (ER) | payer OTHER ==
[2017-05-06 23:18] VITALS: BP 129/74; PULSE 82; TEMP 98.3; BMI 30.4
[2017-05-07] MEDS ORDERED: SODIUM CHLORIDE 1,000 ML IV STA (00:40)
--- NOTE | 2017-05-07 00:40 | PDOC ---
History of Present Illness - General Chief Complaint: Vaginal Bleeding Stated Complaint: VAGINAL BLEEDING/12 WKS Time Seen by Provider: 05/07/17 00:39 History Source: Patient - History of Present Illness Initial Comments: 05/07/17 03:11 26 year old female 12 week c/o pelvic cramping and vaginal spotting this evening prior to arrival. patient recently admitted for PE and currently on Lovenox. Past History - Past Medical History Allergies/Adverse Reactions: Allergies Allergy/AdvReac Type Severity Reaction Status Date / Time No Known Allergies Allergy Verified 05/06/17 23:14 Home Medications: Ambulatory Orders Enoxaparin [Lovenox -] 80 mg SQ BID #60 mg 04/05/17 Amoxicillin/Potassium Clav [Augmentin 875-125 Tablet] 1 each PO BID #2 tablet Vitamins (Sjr) - 1 tab PO DAILY #30 tablet 04/08/17 Other medical history: PE 04/02/17 - Reproductive History (#): 2 Para: 0 Therapeutic (s) & number: Yes (1) - Suicide/Smoking/Psychosocial Hx Smoking History: Never smoked Have you smoked in the past 12 months: Yes Number of Cigarettes Smoked Daily: 5 If you are a former smoker, when did you quit?: X5 DAYS AGO 'Breaking Loose' booklet given: 04/01/17 Hx Alcohol Use: No Drug/Substance Use Hx: No Substance Use Type: None Hx Substance Use Treatment: No *Physical Exam - Vital Signs Last Vital Signs Temp Pulse Resp BP Pulse Ox 98.3 F 82 18 129/74 98 05/06/17 23:09 05/06/17 23:09 05/06/17 23:09 05/06/17 23:09 05/06/17 23:09 - Physical Exam General Appearance: Yes: Appropriately Dressed Female Pelvic Exam: positive: normal external exam Gastrointestinal/Abdominal: positive: Normal Bowel Sounds, Soft. negative: Tender Extremity: positive: Normal Capillary Refill, Normal Inspection, Normal Range of Motion Integumentary: positive: Normal Color, Dry, Warm Neurologic: positive: Fully Oriented, Alert, Normal Mood/Affect ED Treatment Course - LABORATORY CBC & Chemistry Diagram: 05/07/17 01:40 - RADIOLOGY Radiograph Interpretation: 05/07/17 03:12 Single IUP measuring gestational age 8 weeks and 5 days with no visible heart motion, compatible with demise. closed cervix. no left ovarian torsion. color flow appropriate arterial and venous waveforms. Progress Note - Progress Note Progress Note: A: demise P: Medical Decision Making - Medical Decision Making 05/07/17 03:23 reviewed results with patient. patient is following up with [address] [place] [address] in [place]. patient reports that she will follow up with pyrotechnician tomorrow *DC/Admit/Observation/Transfer Diagnosis at time of Disposition: demise, less than 22 weeks - Discharge Dispostion Disposition: HOME - Referrals Referrals: Iwona Marcelo MD [Primary Care Provider] - - Patient Instructions Printed Discharge Instructions: Dealing With Miscarriage Additional Instructions: follow up with ob /ship pilot dispatcher tomorrow. return to the ER if you are bleeding through 2 pads/ hour, severe abdominal pain , fever/ - Post Discharge Activity Work/School Note: Back to Work
[2017-05-07 01:55] LABS: EOSINOPHIL 0.7 % (0-4.5); MCH 28.4 pg (25.7-33.7); MCHC 33.7 g/dl (32.0-36.0); MEAN CELL VOLUME 84.1 fl (80-96); MEAN PLT VOLUME 8.2 fl (7.5-11.1); NEUTROPHILS 58.3 % (42.8-82.8); PLATELET COUNT 385 K/MM3 (134-434); RDW 15.2 % (11.6-15.6); WHITE BLOOD COUNT 12.9 K/mm3 (4.0-10.0)
[2017-05-07 02:08] LABS: INR 1.12 (0.82-1.09); PROTHROMBIN TIME (PATIENT) 12.4 SEC (9.98-11.88)
== END 2017-05-07 04:23 | disposition home or self-care (01) ==
LOC: JER 23:08
DX: O02.1 Missed abortion (principal); Z86.711 Personal history of pulmonary embolism; Z79.01 Long term (current) use of anticoagulants; Z3A.01 Less than 8 weeks gestation of pregnancy
CPT/HCPCS: 36415; 76817-TC; 84702; 85025; 85610; 99282-25

== ENCOUNTER 2017-05-09 00:49 | Emergency (ER) | payer OTHER ==
[2017-05-09 01:46] VITALS: TEMP 97.5; BMI 31.4
[2017-05-09 02:15] LABS: BASOPHIL 0.5 % (0-2.0); EOSINOPHIL 0.8 % (0-4.5); MCH 28.3 pg (25.7-33.7); MCHC 33.6 g/dl (32.0-36.0); MEAN CELL VOLUME 84.4 fl (80-96); MEAN PLT VOLUME 7.9 fl (7.5-11.1); NEUTROPHILS 71.6 % (42.8-82.8); PLATELET COUNT 350 K/MM3 (134-434); RDW 15.3 % (11.6-15.6)
--- NOTE | 2017-05-09 02:40 | PDOC ---
History of Present Illness - General History Source: Patient Exam Limitations: No Limitations - History of Present Illness Travel History: No Initial Comments: 05/09/17 02:36 26yo female patient w/ PmHx: PE on Lovenox, presents to ED c/o miscarriage. Patient states she was seen 2 days ago for vaginal spotting. US showed demise. Patient she went to [facility] ER for second opinion and was told demise. She returns tonight due to heavy vaginal bleeding which began at 11pm. Patient reports changing 5 pads in 15 mins. + Abd cramping , back pain and heavy vaginal bleeding. Denies fever, diff breathing, rash, dizziness, lightheadedness, or any other complaints at this time. Timing/Duration: reports: getting worse <Irena Sesay - Last Filed: 05/09/17 02:35> <Dionne Chandler - Last Filed: 05/12/17 08:11> - General Chief Complaint: Vaginal Bleeding Stated Complaint: VAGINAL BLEEDING/PAIN 12 WKS PREG Time Seen by Provider: 05/09/17 01:40 Past History - Travel Traveled outside of the country in the last 30 days: No Close contact w/someone who was outside of country & ill: No - Past Medical History Other medical history: PULMONARYN EMBOLISM - Reproductive History (#): 2 Para: 0 Therapeutic (s) & number: Yes (1) - Suicide/Smoking/Psychosocial Hx Smoking History: Never smoked Have you smoked in the past 12 months: No Number of Cigarettes Smoked Daily: 5 If you are a former smoker, when did you quit?: X5 DAYS AGO Information on smoking cessation initiated: No 'Breaking Loose' booklet given: 04/01/17 Hx Alcohol Use: No Drug/Substance Use Hx: No Substance Use Type: None Hx Substance Use Treatment: No <Irena Sesay - Last Filed: 05/09/17 02:35> <Dionne Chandler - Last Filed: 05/12/17 08:11> - Past Medical History Allergies/Adverse Reactions: Allergies Allergy/AdvReac Type Severity Reaction Status Date / Time No Known Allergies Allergy Verified 05/09/17 01:37 Home Medications: Ambulatory Orders Enoxaparin [Lovenox -] 80 mg SQ BID #60 mg 04/05/17 Amoxicillin/Potassium Clav [Augmentin 875-125 Tablet] 1 each PO BID #2 tablet Vitamins (Sjr) - 1 tab PO DAILY #30 tablet 04/08/17 Misoprostol [Cytotec] 100 mcg PO TID #9 tablet 05/09/17 Abd/GI Specific PMHX - Complaint Specific PMHX Colitis: No Diverticulitis: No Gall Bladder Disease: No GERD: No Hepatitis: No Irritable Bowel Synd (IBS): No Pancreatitis: No GI Ulcer Disease: No <Irena Sesay - Last Filed: 05/09/17 02:35> Review of Systems - Review of Systems Able to Perform ROS?: Yes Is the patient limited Tajik proficient: No ABD/GI: Yes: Abdominal cramping. No: Diarrhea, Nausea, Rectal Bleeding, Vomiting, Tarry Stools : Yes: Other (Vaginal Bleeding.). No: Burning, Dysuria, Discharge, Frequency , Flank Pain, Hematuria, Incontinence, Pain, Urgency Musculoskeletal: Yes: Back Pain All Other Systems: Reviewed and Negative <Irena Sesay - Last Filed: 05/09/17 02:35> *Physical Exam - Vital Signs Last Vital Signs Temp Pulse Resp BP Pulse Ox 97.5 F L 73 14 135/75 100 05/09/17 01:37 05/09/17 01:37 05/09/17 01:37 05/09/17 01:37 05/09/17 01:37 - Physical Exam General Appearance: Yes: Nourished, Appropriately Dressed, Mild Distress. No: Apparent Distress, Moderate Distress, Severe Distress Respiratory/Chest: positive: Lungs Clear, Normal Breath Sounds. negative: Respiratory Distress, Accessory Muscle Use, Labored Respiration, Rapid RR, Stridor, Wheezing Cardiovascular: positive: Regular Rhythm, Regular Rate Female Pelvic Exam: positive: vaginal bleeding. negative: normal external exam (Moist dark blood around external meatus.), cervical os closed (Cervical os open with products of conception visible.), CMT, discharge Gastrointestinal/Abdominal: positive: Normal Bowel Sounds, Soft. negative: Distended, Guarding, Rebound, Tenderness Musculoskeletal: positive: Normal Inspection. negative: CVA Tenderness Extremity: positive: Normal Capillary Refill, Normal Inspection, Normal Range of Motion Integumentary: positive: Normal Color, Dry, Warm Neurologic: positive: jump roll operator II-XII NML intact, Fully Oriented, Alert, Normal Mood/ Affect, Normal Response, Motor Strength 5/5 <Irena Sesay - Last Filed: 05/09/17 02:35> - Vital Signs Last Vital Signs Temp Pulse Resp BP Pulse Ox 97.5 F L 66 15 128/77 99 05/09/17 05:59 05/09/17 05:59 05/09/17 05:59 05/09/17 05:59 05/09/17 05:59 <Dionne Chandler - Last Filed: 05/12/17 08:11> ED Treatment Course - LABORATORY CBC & Chemistry Diagram: 05/09/17 02:10 05/09/17 02:10 - ADDITIONAL ORDERS Additional order review: 05/09/17 02:10 RBC 3.95 MCV 84.4 MCHC 33.6 RDW 15.3 MPV 7.9 Neutrophils % 71.6 D Lymphocytes % 23.6 D Monocytes % 3.5 L Eosinophils % 0.8 Basophils % 0.5 - RADIOLOGY Radiology Studies Ordered: Category Date Time Status <14WKS US [US] Stat Ultrasound 05/09/17 01:40 Taken <Irena Sesay - Last Filed: 05/09/17 02:35> - LABORATORY CBC & Chemistry Diagram: 05/09/17 02:10 05/09/17 02:10 - ADDITIONAL ORDERS Additional order review: Laboratory Results 05/09/17 05/09/17 05/09/17 05:23 02:10 02:10 Sodium 139 Potassium 3.7 Chloride 105 Carbon Dioxide 23 D Anion Gap 11 BUN 6 L D Creatinine 0.6 Creat Clearance w eGFR > 60 Random Glucose 109 H Calcium 8.7 Total Bilirubin 0.2 D AST 13 L D ALT 23 D Alkaline Phosphatase 58 Total Protein 6.6 Albumin 3.3 L Blood Type B POSITIVE B POSITIVE Antibody Screen Negative Negative 05/09/17 02:10 RBC 3.95 MCV 84.4 MCHC 33.6 RDW 15.3 MPV 7.9 Neutrophils % 71.6 D Lymphocytes % 23.6 D Monocytes % 3.5 L Eosinophils % 0.8 Basophils % 0.5 - Medications Given in the ED: ED Medications Discontinued Medications Generic Name Dose Route Start Last Admin Trade Name Freq PRN Reason Stop Dose Admin Ibuprofen 800 mg 05/09/17 04:08 05/09/17 04:17 Motrin - PO 05/09/17 04:09 800 mg ONCE ONE Administration - Consult/PCP Time Called: 08:31 Case discussed with personal care physician: Kay Martin <Dionne Chandler - Last Filed: 05/12/17 08:11> Medical Decision Making - Medical Decision Making 05/09/17 02:[address] Martin regarding patient having products of conception within vaginal canal. Patient should stay until tomorrow morning to see if products pass naturally. If not, then patient should be taken to OR for D&C. Patient made aware and has agreed to stay. <Irena Sesay - Last Filed: 05/09/17 02:35> - Medical Decision Making 05/09/17 08:02 pt passed POC in the hat in the toilet. will collect the specimen and send to the lab. pt denies any pain or heavy bleeding. 05/09/17 08:26 paged to update 05/09/17 08:53 05/09/17 09:15 states pt is a clinic patient, not her pt . I have paged . 05/09/17 09:24 spoke with recommends 1gm Ancef , cytotech and methergine pt to follow with in 2 days for follow up. Pt is aware and agrees with the plan of care. Pt states she has mild spotting no heavy bleeding or cramping. vitals stable ambulatory . 05/12/17 08:10 05/12/17 08:11 <Dinone Chandler - Last Filed: 05/12/17 08:11> *DC/Admit/Observation/Transfer <Irena Sesay - Last Filed: 05/09/17 02:35> <Dionne Chandler - Last Filed: 05/12/17 08:11> Diagnosis at time of Disposition: demise, less than 22 weeks - Discharge Dispostion Disposition: HOME - Prescriptions Prescriptions: Misoprostol [Cytotec] 100 mcg PO TID #9 tablet - Referrals Referrals: Iwona Marcelo MD [Primary Care Provider] - Kay Martin DO [Staff Physician] - - Patient Instructions Additional Instructions: please follow up with your LAP MAKER call today to make appointment please follow with your PMD regarding lovenox regimen get pleanty of rest no heavy lifting or bending , no strenuous activity please take tylenol 650mg every 4hrs for any pain take the cytotec as directed for 3 days any worsening symptoms return to the ER
[2017-05-09 02:45] LABS: ALBUMIN 3.3 g/dl (3.4-5.0); ALK PHOS 58 U/L (45-117); ANION GAP 11 (8-16); BILIRUBIN,TOTAL 0.2 mg/dL (0.2-1.0); CALCIUM 8.7 mg/dL (8.5-10.1); CO2 23 mmol/L (21-32); CREATININE 0.6 mg/dL (0.55-1.02); GLUCOSE,RANDOM 109 mg/dL (74-106); SGOT/AST 13 U/L (15-37); SGPT/ALT 23 U/L (12-78); TOT PROT 6.6 g/dl (6.4-8.2)
[2017-05-09] MEDS ORDERED: IBUPROFEN 400 MG TABLET (FP) PO ONE ×2 (04:08→04:15)
--- NOTE | 2017-05-09 05:50 | PDOC ---
*Physical Exam - Vital Signs Last Vital Signs Temp Pulse Resp BP Pulse Ox 97.5 F L 66 17 130/72 99 05/09/17 01:37 05/09/17 03:59 05/09/17 03:59 05/09/17 03:59 05/09/17 03:59 ED Treatment Course - LABORATORY CBC & Chemistry Diagram: 05/09/17 02:10 05/09/17 02:10 - ADDITIONAL ORDERS Additional order review: Laboratory Results 05/09/17 05/09/17 02:10 02:10 Sodium 139 Potassium 3.7 Chloride 105 Carbon Dioxide 23 D Anion Gap 11 BUN 6 L D Creatinine 0.6 Creat Clearance w eGFR > 60 Random Glucose 109 H Calcium 8.7 Total Bilirubin 0.2 D AST 13 L D ALT 23 D Alkaline Phosphatase 58 Total Protein 6.6 Albumin 3.3 L Blood Type B POSITIVE Antibody Screen Negative 05/09/17 02:10 RBC 3.95 MCV 84.4 MCHC 33.6 RDW 15.3 MPV 7.9 Neutrophils % 71.6 D Lymphocytes % 23.6 D Monocytes % 3.5 L Eosinophils % 0.8 Basophils % 0.5 - Medications Given in the ED: ED Medications Discontinued Medications Generic Name Dose Route Start Last Admin Trade Name Freq PRN Reason Stop Dose Admin Ibuprofen 800 mg 05/09/17 04:08 05/09/17 04:17 Motrin - PO 05/09/17 04:09 800 mg ONCE ONE Administration Medical Decision Making - Medical Decision Making 05/09/17 05:50 agree with care from CHRIS Sesay *DC/Admit/Observation/Transfer Diagnosis at time of Disposition: demise, less than 22 weeks - Discharge Dispostion Disposition: HOME - Prescriptions Prescriptions: Misoprostol [Cytotec] 100 mcg PO TID #9 tablet - Referrals Referrals: Iwona Marcelo MD [Primary Care Provider] - Kay Martin DO [Staff Physician] - - Patient Instructions Additional Instructions: please follow up with your SPECIAL EDUCATION PRESCHOOL TEACHER call today to make appointment please follow with your PMD regarding lovenox regimen get pleanty of rest no heavy lifting or bending , no strenuous activity please take tylenol 650mg every 4hrs for any pain take the cytotec as directed for 3 days any worsening symptoms return to the ER
[2017-05-09] MEDS ORDERED: METHYLERGONOVINE MALEATE 0.2 MG/1 ML AMP IM ONE (09:22)
[2017-05-09] MEDS ORDERED: CEFAZOLIN 1 GM in DEXTROSE 5%-WATER - 50 ML IVPB ONE (09:56)
[2017-05-09] MEDS ORDERED: CEFAZOLIN (PRE-DOCKED) 50 ML IVPB ONE (10:04)
[2017-05-09 11:08] VITALS: BP 118/65; PULSE 70
--- NOTE | 2017-05-10 13:37 | PATH ---
Surgical Pathology Report Patient Name: LUCAS CAMPOS [facility]. Rec. #: [id number] /Age/Gender: 1990 (Age: 26) / F Account: [id number] Location: EMERGENCY ROOM Taken: 05/09/2017 Received: 05/09/2017 Reported: 05/10/2017 Physicians: Yusuf Soliz M.D. Specimen(s) Received PRODUCTS OF CONCEPTION Clinical History 12 weeks with demise Final Diagnosis UTERINE CONTENTS, EVACUATION: CHORIONIC VILLI CONSISTENT WITH PRODUCTS OF CONCEPTION. Electronically Signed Burak Centeno M.D. Gross Description Received fresh labeled with the patient's name and indicated on the requisition to be products of conception, is a 7.5 x 4.0 x 1.5 cm ponce-red, irregular portion of soft tissue. Villous tissue is identified. No somatic tissues identified. Star Route Mail Driver sections are submitted in one cassette. /05/09/2017 saudi05/09/2017
== END 2017-05-09 11:15 | disposition home or self-care (01) ==
LOC: JER 00:49
DX: O02.1 Missed abortion (principal); Z3A.12 12 weeks gestation of pregnancy; Z86.711 Personal history of pulmonary embolism; Z79.01 Long term (current) use of anticoagulants
CPT/HCPCS: 36415; 76801-TC; 80053; 85025; 86850; 86900; 86901; 88305-TC; 99284-25

== ENCOUNTER 2019-04-13 17:57 | Emergency (ER) | payer OTHER ==
[2019-04-13 18:13] VITALS: BMI 33.5
--- NOTE | 2019-04-13 18:16 | PDOC ---
Rapid Medical Evaluation Time Seen by Provider: 04/13/19 18:11 Medical Evaluation: Allergies Allergy/AdvReac Type Severity Reaction Status Date / Time No Known Allergies Allergy Verified 05/09/17 01:37 04/13/19 18:11 This patient had a brief in-person evaluation in triage cc: intermittent spotting since mid February, LMP 02/13/19 reports bleeding intermittently heavy, +cramping HPI: NAD even and unlabored breathing + tenderness in lower abdomen, bilaterally orders: urine preg, urinalysis, labs This patient will proceed to ED for further evaluation. Discharge Disposition - Diagnosis Vaginal bleeding - Referrals - Patient Instructions - Post Discharge Activity
[2019-04-13 19:17] LABS: BASO % 0.3 % (0-2.0); EOS % 1.8 % (0-4.5); HEMATOCRIT 35.8 % (32.4-45.2); HEMOGLOBIN 11.9 GM/dL (10.7-15.3); LYMPH % 30.6 % (8-40); MCH 27.8 pg (25.7-33.7); MCHC 33.2 g/dl (32.0-36.0); MEAN CELL VOLUME 83.8 fl (80-96); MEAN PLT VOLUME 8.4 fl (7.5-11.1); MONO % 4.4 % (3.8-10.2); NEUT % 62.9 % (42.8-82.8); PLATELET COUNT 355 K/MM3 (134-434); RBC 4.27 M/mm3 (3.60-5.2); RDW 15.5 % (11.6-15.6); WHITE BLOOD COUNT 7.3 K/mm3 (4.0-10.0)
[2019-04-13 19:22] LABS: ALBUMIN 3.7 g/dl (3.4-5.0); ALK PHOS 87 U/L (45-117); ANION GAP 6 MMOL/L (8-16); BILIRUBIN,TOTAL 0.2 mg/dL (0.2-1); BLOOD UREA NITROGEN 10.6 mg/dL (7-18); CALCIUM 8.9 mg/dL (8.5-10.1); CHLORIDE 106 mmol/L (98-107); CO2 29 mmol/L (21-32); CREATININE 0.7 mg/dL (0.55-1.3); GLUCOSE,RANDOM 100 mg/dL (74-106); POTASSIUM 4.3 mmol/L (3.5-5.1); SGOT/AST 11 U/L (15-37); SGPT/ALT 19 U/L (13-61); SODIUM 141 mmol/L (136-145)
[2019-04-13 19:30] LABS: INR 1.03 (0.83-1.09); PROTHROMBIN TIME (PATIENT) 12.2 SEC (9.7-13.0)
--- NOTE | 2019-04-13 21:10 | PDOC ---
History of Present Illness - General Chief Complaint: Vaginal Bleeding Stated Complaint: PELVIC PAIN/LUNG DISCOMFORT Time Seen by Provider: 04/13/19 18:11 History Source: Patient - History of Present Illness Initial Comments: 04/13/19 21:25 28 year old female c/o pelvic pain and vaginal bleeding on and off x 1 month. patient reports brown vaginal discharge. denies nausea/ vomiting diarhhea. treated for BV 2 weeks ago. STI testing negative at the time. PMHX: PE Past History - Past Medical History Allergies/Adverse Reactions: Allergies Allergy/AdvReac Type Severity Reaction Status Date / Time No Known Allergies Allergy Verified 04/13/19 18:13 Home Medications: Ambulatory Orders Nitrofurantoin Monohyd/M-Cryst [Macrobid -] 100 mg PO BID #14 capsule 01/02/17 Valacyclovir HCl [Valtrex -] 500 mg PO DAILY 01/02/17 Enoxaparin [Lovenox -] 80 mg SQ BID #60 mg 04/05/17 Amoxicillin/Potassium Clav [Augmentin 875-125 Tablet] 1 each PO BID #2 tablet Vitamins (Sjr) - 1 tab PO DAILY #30 tablet 04/08/17 Misoprostol [Cytotec] 100 mcg PO TID #9 tablet 05/09/17 COPD: No Thyroid Disease: No Other medical history: PE - Reproductive History Is Patient Now?: No (#): 2 Para: 0 Therapeutic (s) & number: Yes (1) - Suicide/Smoking/Psychosocial Hx Smoking History: Never smoked Have you smoked in the past 12 months: Yes Number of Cigarettes Smoked Daily: 5 If you are a former smoker, when did you quit?: X5 DAYS AGO Information on smoking cessation initiated: No 'Breaking Loose' booklet given: 04/01/17 Hx Alcohol Use: No Drug/Substance Use Hx: No Substance Use Type: None Hx Substance Use Treatment: No Abd/GI Specific PMHX - Complaint Specific PMHX Colitis: No Diverticulitis: No Gall Bladder Disease: No GERD: No Hepatitis: No Irritable Bowel Synd (IBS): No Pancreatitis: No GI Ulcer Disease: No Review of Systems - Review of Systems Able to Perform ROS?: Yes Is the patient limited Greek proficient: No *Physical Exam - Vital Signs Last Vital Signs Temp Pulse Resp BP Pulse Ox 98 F 72 18 116/53 L 100 04/13/19 18:11 04/13/19 18:11 04/13/19 18:11 04/13/19 18:11 04/13/19 18:11 - Physical Exam General Appearance: Yes: Appropriately Dressed Cardiovascular: positive: Regular Rhythm, Regular Rate Female Pelvic Exam: positive: normal external exam, adnexal tenderness (left ), other (brown vaginal discharge in vaginal vault noted). negative: CMT Gastrointestinal/Abdominal: positive: Normal Bowel Sounds, Soft. negative: Tender Extremity: positive: Normal Capillary Refill, Normal Inspection, Normal Range of Motion Integumentary: positive: Normal Color, Dry, Warm Neurologic: positive: Fully Oriented, Alert, Normal Mood/Affect ED Treatment Course - LABORATORY CBC & Chemistry Diagram: 04/13/19 18:31 04/13/19 18:31 - ADDITIONAL ORDERS Additional order review: Laboratory Results 04/13/19 04/13/19 04/13/19 18:31 18:31 18:31 PT with INR 12.20 INR 1.03 PTT (Actin FS) Sodium 141 Potassium 4.3 Chloride 106 Carbon Dioxide 29 Anion Gap 6 L BUN 10.6 Creatinine 0.7 Est GFR (CKD-EPI)AfAm 137.62 Est GFR (CKD-EPI)NonAf 118.74 Random Glucose 100 Calcium 8.9 Total Bilirubin 0.2 AST 11 L ALT 19 Alkaline Phosphatase 87 Total Protein 7.0 Albumin 3.7 Beta HCG, Quant < 1.0 Blood Type B POSITIVE Antibody Screen Negative 04/13/19 18:31 PT with INR INR PTT (Actin FS) 30.6 Sodium Potassium Chloride Carbon Dioxide Anion Gap BUN Creatinine Est GFR (CKD-EPI)AfAm Est GFR (CKD-EPI)NonAf Random Glucose Calcium Total Bilirubin AST ALT Alkaline Phosphatase Total Protein Albumin Beta HCG, Quant Blood Type Antibody Screen 04/13/19 18:31 RBC 4.27 MCV 83.8 MCHC 33.2 RDW 15.5 MPV 8.4 Neutrophils % 62.9 Lymphocytes % 30.6 D Monocytes % 4.4 Eosinophils % 1.8 D Basophils % 0.3 - RADIOLOGY Radiology Studies Ordered: Category Date Time Status TRANSVAGINAL ULTRASOUND US [US] Stat Ultrasound 04/13/19 20:22 Ordered Progress Note - Progress Note Progress Note: A: pelvic pain P: labs US ua *DC/Admit/Observation/Transfer Diagnosis at time of Disposition: Pelvic pain Ovarian cyst Qualifiers: Laterality: bilateral Qualified Code(s): N83.201 - Unspecified ovarian cyst, right side - Referrals Referrals: Iwona Marcelo MD [Primary Care Provider] - Kay Martin DO [Staff Physician] - Call tomorrow - Patient Instructions Printed Discharge Instructions: Ovarian Cyst Additional Instructions: return to the ER if you are soaking 2 pads per hour, severe abdominal pain, or worsening symptoms. You may take ibuprofen every 6 hours for pain. please follow-up with the power digger operator as soon as possible Additional Instructions: * Please call your personal physician to report your Emergency Department visit and to report your progress, if any. * If there is no improvement in symptoms in 2 days call your physician. * Return to the Emergency Department for any worsening symptoms. - Post Discharge Activity
[2019-04-13 22:20] LABS: URINE APPEARANCE CLEAR; URINE BILIRUBIN NEGATIVE (NEGATIVE); URINE COLOR YELLOW; URINE GLUCOSE (UA) NEGATIVE (NEGATIVE); URINE KETONE NEGATIVE (NEGATIVE); URINE LEUK ESTERASE NEGATIVE (NEGATIVE); URINE NITRITE NEGATIVE (NEGATIVE); URINE PROTEIN NEGATIVE (NEGATIVE)
[2019-04-13 22:53] VITALS: BP 118/78; PULSE 66; TEMP 98.6
== END 2019-04-13 22:52 | disposition home or self-care (01) ==
LOC: JER 17:57
DX: N83.201 Unspecified ovarian cyst, right side (principal); N83.202 Unspecified ovarian cyst, left side
CPT/HCPCS: 36415; 76830-TC; 80053; 81003; 84702; 84703; 85025; 85610; 85730; 86850; 86900; 86901; 99283-25

== ENCOUNTER 2019-05-26 02:21 | Emergency (ER) | payer OTHER ==
[2019-05-26 03:13] VITALS: BP 117/62; TEMP 98; BMI 33.5
--- NOTE | 2019-05-26 03:53 | PDOC ---
*Physical Exam - Vital Signs Last Vital Signs Temp Pulse Resp BP Pulse Ox 98.0 F 67 17 117/62 99 05/26/19 02:21 05/26/19 02:21 05/26/19 02:21 05/26/19 02:21 05/26/19 02:21 ED Treatment Course - LABORATORY CBC & Chemistry Diagram: 05/26/19 04:30 05/26/19 04:30 Medical Decision Making - Medical Decision Making 05/26/19 03:52 Patient seen by the advanced practice provider under my direct supervision. Ancillary testing reviewed as necessary. I agree with plan as outlined by the advanced practice provider. Discharge - Discharge Information Problems reviewed: Yes Clinical Impression/Diagnosis: Shortness of breath Condition: Fair - Additional Discharge Information Prescriptions: Albuterol Sulfate Inhaler - [Ventolin HFA Inhaler -] 1 - 2 inh PO Q4H PRN #1 inhaler PRN Reason: Cough - Follow up/Referral Referrals: Iwona Marcelo MD [Primary Care Provider] - - Patient Discharge Instructions Patient Printed Discharge Instructions: DI for Reactive Airway Disease-Adult Additional Instructions: Additional Instructions: * Please call your personal physician to report your Emergency Department visit and to report your progress, if any. * If there is no improvement in symptoms in 2 days call your physician. * Return to the Emergency Department for any worsening symptoms. - Post Discharge Activity Work/Back to School Note: Back to Work
--- NOTE | 2019-05-26 03:59 | PDOC ---
History of Present Illness - General Chief Complaint: Shortness of Breath Stated Complaint: DIFF BREATHING/HX OF LUNG PROBLEMS Time Seen by Provider: 05/26/19 03:51 - History of Present Illness Initial Comments: 05/26/19 04:[id number] female complaining of shortness of breath and pleuritic chest pain on and off for the last 3 days. Patient reports that she was diagnosed with a PE 2 years ago. Patient reports that she was noncompliant with therapy and has been asymptomatic for the last 2 years. Denies nausea, vomiting, diaphoresis, weakness, chest pain at this time Past History - Past Medical History Allergies/Adverse Reactions: Allergies Allergy/AdvReac Type Severity Reaction Status Date / Time No Known Allergies Allergy Verified 05/26/19 03:14 Home Medications: Ambulatory Orders Nitrofurantoin Monohyd/M-Cryst [Macrobid -] 100 mg PO BID #14 capsule 01/02/17 Valacyclovir HCl [Valtrex -] 500 mg PO DAILY 01/02/17 Enoxaparin [Lovenox -] 80 mg SQ BID #60 mg 04/05/17 Amoxicillin/Potassium Clav [Augmentin 875-125 Tablet] 1 each PO BID #2 tablet Vitamins (Sjr) - 1 tab PO DAILY #30 tablet 04/08/17 Misoprostol [Cytotec] 100 mcg PO TID #9 tablet 05/09/17 Albuterol Sulfate Inhaler - [Ventolin HFA Inhaler -] 1 - 2 inh PO Q4H PRN #1 inhaler 05/26/19 COPD: No Thyroid Disease: No - Reproductive History (#): 2 Para: 0 Therapeutic (s) & number: Yes (1) - Psycho Social/Smoking Cessation Hx Smoking History: Never smoked Have you smoked in the past 12 months: Yes Number of Cigarettes Smoked Daily: 5 If you are a former smoker, when did you quit?: X5 DAYS AGO 'Breaking Loose' booklet given: 04/01/17 Hx Alcohol Use: No Drug/Substance Use Hx: No Substance Use Type: None Hx Substance Use Treatment: No Review of Systems - Review of Systems Able to Perform ROS?: Yes Is the patient limited Swazi proficient: No Constitutional: No: Symptoms Reported, See HPI, Chills, Diaphoresis, Fever, Loss of Appetite, Malaise, Night Sweats, Weakness, Weight Stable, Unintentional Wgt. Loss, Unexplained wgt Loss, Other HEENTM: No: Symptoms Reported, See HPI, Eye Pain, Blurred Vision, Tearing, Recent change in vision, Double Vision, Cataracts, Ear Pain, Ocular Prothesis, Ear Discharge, Nose Pain, Nose Congestion, Tinnitus, Nose Bleeding, Hearing Loss , Throat Pain, Throat Swelling, Mouth Pain, Dental Problems, Difficulty Swallowing, Mouth Swelling, Other Respiratory: Yes: SOB at Rest, Other (pleuritic pain) ABD/GI: No: Symptoms Reported, See HPI, Abdominal Distended, Abd. Pain w/ defecation, Blood Streaked Bowels, Constipated, Diarrhea, Difficulty Swallowing , Nausea, Poor Appetite, Poor Fluid Intake, Rectal Bleeding, Vomiting, Indigestion, Abdominal cramping, Tarry Stools, Other *Physical Exam - Vital Signs Last Vital Signs Temp Pulse Resp BP Pulse Ox 98.0 F 67 17 117/62 99 05/26/19 02:21 05/26/19 02:21 05/26/19 02:21 05/26/19 02:21 05/26/19 02:21 - Physical Exam General Appearance: Yes: Appropriately Dressed Respiratory/Chest: positive: Lungs Clear, Normal Breath Sounds. negative: Chest Tender Cardiovascular: positive: Regular Rhythm, Regular Rate Gastrointestinal/Abdominal: positive: Normal Bowel Sounds, Soft. negative: Tender Extremity: positive: Normal Capillary Refill Integumentary: positive: Normal Color, Dry, Warm Neurologic: positive: Fully Oriented, Alert, Normal Mood/Affect ED Treatment Course - LABORATORY CBC & Chemistry Diagram: 05/26/19 04:30 05/26/19 04:30 ED Progress Note - Progress Note Progress Note: 05/26/19 04:28 A: A: SOB r/o PE P: labs CTA CHest Medical Decision Making - Medical Decision Making 05/26/19 06:47 CTA chest : Mild right basilar air trapping could indicate small airways disease. NO PE 05/26/19 06:48 Discharge - Discharge Information Problems reviewed: Yes Clinical Impression/Diagnosis: Shortness of breath Condition: Fair - Additional Discharge Information Prescriptions: Albuterol Sulfate Inhaler - [Ventolin HFA Inhaler -] 1 - 2 inh PO Q4H PRN #1 inhaler PRN Reason: Cough - Follow up/Referral Referrals: Iwona Marcelo MD [Primary Care Provider] - - Patient Discharge Instructions Patient Printed Discharge Instructions: DI for Reactive Airway Disease-Adult Additional Instructions: Additional Instructions: * Please call your personal physician to report your Emergency Department visit and to report your progress, if any. * If there is no improvement in symptoms in 2 days call your physician. * Return to the Emergency Department for any worsening symptoms. - Post Discharge Activity Work/Back to School Note: Back to Work
[2019-05-26 05:09] LABS: BASO % 0.5 % (0-2.0); EOS % 1.8 % (0-4.5); HEMATOCRIT 36.7 % (32.4-45.2); HEMOGLOBIN 12.3 GM/dL (10.7-15.3); LYMPH % 48.1 % (8-40); MCHC 33.5 g/dl (32.0-36.0); MEAN CELL VOLUME 83.7 fl (80-96); MEAN PLT VOLUME 8.2 fl (7.5-11.1); MONO % 4.2 % (3.8-10.2); NEUT % 45.4 % (42.8-82.8); PLATELET COUNT 388 K/MM3 (134-434); RBC 4.39 M/mm3 (3.60-5.2); RDW 15.6 % (11.6-15.6); WHITE BLOOD COUNT 8.6 K/mm3 (4.0-10.0)
[2019-05-26 05:24] LABS: ALBUMIN 3.9 g/dl (3.4-5.0); BILIRUBIN,TOTAL 0.2 mg/dL (0.2-1); BLOOD UREA NITROGEN 8.5 mg/dL (7-18); CREATININE 0.8 mg/dL (0.55-1.3)
[2019-05-26 05:33] LABS: PROTHROMBIN TIME (PATIENT) 11.8 SEC (9.7-13.0)
[2019-05-26 06:58] VITALS: PULSE 84
== END 2019-05-26 06:58 | disposition home or self-care (01) ==
LOC: JER 02:21
DX: R06.02 Shortness of breath (principal); Z86.711 Personal history of pulmonary embolism
CPT/HCPCS: 36415; 71275-TC; 80053; 84703; 85025; 85610; 85730; 99283-25; Q9967

== ENCOUNTER 2020-03-08 23:59 | Emergency (ER) | payer OTHER ==
[2020-03-09 00:18] VITALS: BP 125/68; PULSE 90; TEMP 98.8; BMI 33.1
--- NOTE | 2020-03-09 00:41 | PDOC ---
*Physical Exam - Vital Signs Last Vital Signs Temp Pulse Resp BP Pulse Ox 98.8 F 90 16 125/68 98 03/09/20 00:15 03/09/20 00:15 03/09/20 00:15 03/09/20 00:15 03/09/20 00:15 Medical Decision Making - Medical Decision Making 03/09/20 00:41 Patient seen by the advanced practice provider under my supervision. Ancillary testing reviewed as necessary. I agree with plan as outlined by the advanced practice provider. Discharge - Discharge Information Problems reviewed: Yes Clinical Impression/Diagnosis: Ingrown hair, Abscess Condition: Stable Disposition: HOME - Additional Discharge Information Prescriptions: Cephalexin Monohydrate [Keflex -] 500 mg PO Q8H #30 capsule - Follow up/Referral Referrals: Nilda Rosenbaum [Primary Care Provider] - - Patient Discharge Instructions Patient Printed Discharge Instructions: DI for Skin Abscess Additional Instructions: Apply warm compress to the area. Take cephalexin as prescribed. Follow-up with your doctor in 2 days for wound check. Return to the ER for any worsening symptoms - Post Discharge Activity
--- NOTE | 2020-03-09 01:14 | PDOC ---
History of Present Illness - General Chief Complaint: Abscess Boil Stated Complaint: PELVIC PAIN Time Seen by Provider: 03/09/20 00:33 History Source: Patient - History of Present Illness Initial Comments: 03/09/20 01:09 29 year old female reports pain to mons pubis for the last 2 days worsening. patient reports that she has been shaving. denies fever/ chills. PMHX: PE, asthma 03/09/20 01:12 Past History - Medical History Allergies/Adverse Reactions: Allergies Allergy/AdvReac Type Severity Reaction Status Date / Time No Known Allergies Allergy Verified 03/09/20 00:18 Home Medications: Ambulatory Orders Nitrofurantoin Monohyd/M-Cryst [Macrobid -] 100 mg PO BID #14 capsule 01/02/17 Valacyclovir HCl [Valtrex -] 500 mg PO DAILY 01/02/17 Enoxaparin [Lovenox -] 80 mg SQ BID #60 mg 04/05/17 Amoxicillin/Potassium Clav [Augmentin 875-125 Tablet] 1 each PO BID #2 tablet 04/07/17 Vitamins ([facility]) - 1 tab PO DAILY #30 tablet 04/08/17 Misoprostol [Cytotec] 100 mcg PO TID #9 tablet 05/09/17 Albuterol Sulfate Inhaler - [Ventolin HFA Inhaler -] 1 - 2 inh PO Q4H PRN #1 inhaler 05/26/19 Cephalexin Monohydrate [Keflex -] 500 mg PO Q8H #30 capsule 03/09/20 COPD: No Thyroid Disease: No - Reproductive History (#): 2 Para: 0 Therapeutic (s) & number: Yes (1) - Psycho-Social/Smoking History Smoking History: Never smoked Have you smoked in the past 12 months: Yes Number of Cigarettes Smoked Daily: 5 If you are a former smoker, when did you quit?: X5 DAYS AGO Information on smoking cessation initiated: No 'Breaking Loose' booklet given: 04/01/17 - Substance Abuse Hx (Audit-C & DAST Scrn) How often the patient has a drink containing alcohol: Never Score: In Men: 4 or > Positive; In Women: 3 or > Positive: 0 Screen Result (Pos requires Nsg. Audit-10AR): Negative In the last yr the pt used illegal drug/Rx for NonMed reason: No Score: Yes response is considered Positive: 0 Screen Result (Positive result requires Nsg. DAST-10): Negative *Physical Exam - Vital Signs Last Vital Signs Temp Pulse Resp BP Pulse Ox 98.8 F 90 16 125/68 98 03/09/20 00:15 03/09/20 00:15 03/09/20 00:15 03/09/20 00:15 03/09/20 00:15 - Physical Exam General Appearance: Yes: Appropriately Dressed Female Pelvic Exam: positive: normal external exam, other (likely an early cyst/ abscess to mons pubis . no fluctuant mass or erythema noted. ) Integumentary: positive: Normal Color, Dry, Warm Neurologic: positive: Fully Oriented, Alert, Normal Mood/Affect ED Progress Note - Progress Note Progress Note: A ingrown hair infection P: po antibiotics close wound check and return precautions were reviewed with patient Discharge - Discharge Information Problems reviewed: Yes Clinical Impression/Diagnosis: Ingrown hair, Abscess Condition: Stable Disposition: HOME - Additional Discharge Information Prescriptions: Cephalexin Monohydrate [Keflex -] 500 mg PO Q8H #30 capsule - Follow up/Referral Referrals: Nilda Rosenbaum [Primary Care Provider] - - Patient Discharge Instructions Patient Printed Discharge Instructions: DI for Skin Abscess Additional Instructions: Apply warm compress to the area. Take cephalexin as prescribed. Follow-up with your doctor in 2 days for wound check. Return to the ER for any worsening symptoms - Post Discharge Activity
== END 2020-03-09 01:59 | disposition home or self-care (01) ==
LOC: SUPCPDRO 23:59 → JER 23:59
DX: L73.1 Pseudofolliculitis barbae (principal); L02.215 Cutaneous abscess of perineum
CPT/HCPCS: 99283-25

== ENCOUNTER 2020-12-24 14:02 | Emergency (ER) | payer OTHER ==
[2020-12-24 14:10] VITALS: BP 117/72; PULSE 75; TEMP 97.7; BMI 32.4
[2020-12-24 15:11] LABS: EPI CELLS >36 /uL (0-25.1); HYALINE CASTS 7 /uL (0-3.1); PH,URINE 5.5 (5.0-8.0); URINE APPEARANCE CLEAR; URINE BACTERIA 658 /uL (0-1359); URINE BILIRUBIN NEGATIVE (NEGATIVE); URINE COLOR YELLOW; URINE GLUCOSE (UA) NEGATIVE (NEGATIVE); URINE KETONE TRACE (NEGATIVE); URINE LEUK ESTERASE TRACE (NEGATIVE); URINE NITRITE NEGATIVE (NEGATIVE); URINE PROTEIN NEGATIVE (NEGATIVE); URINE RBC 26 /uL (0-23.9); URINE WBC 42 /uL (0-25.8)
[2020-12-24] MEDS ORDERED: ACETAMINOPHEN 325 MG TABLET (FP) PO ONE (17:48)
[2020-12-24] MEDS ORDERED: ACETAMINOPHEN 325 MG TABLET (FP) ONE (17:51)
== END 2020-12-24 18:33 | disposition home or self-care (01) ==
LOC: JER 14:02
DX: O20.0 Threatened abortion (principal)
CPT/HCPCS: 36415; 76817-TC; 81003; 84702; 87086; 99284-25

== ENCOUNTER 2021-01-06 20:21 | Emergency (ER) | payer OTHER ==
[2021-01-06 20:25] VITALS: BP 110/72; PULSE 68; TEMP 98; BMI 32.5
[2021-01-06 21:21] LABS: BASO % 0.5 % (0-2.0); HEMATOCRIT 37.8 % (32.4-45.2); HEMOGLOBIN 12.6 GM/dL (10.7-15.3); LYMPH % 29.4 % (8-40); MCH 29.1 pg (25.7-33.7); MCHC 33.4 g/dl (32.0-36.0); MEAN CELL VOLUME 87.1 fl (80-96); MEAN PLT VOLUME 8.1 fl (7.5-11.1); MONO % 4.5 % (3.8-10.2); NEUT % 64.6 % (42.8-82.8); PLATELET COUNT 374 K/MM3 (134-434); RBC 4.34 M/mm3 (3.60-5.2); WHITE BLOOD COUNT 9.7 K/mm3 (4.0-10.0)
[2021-01-06 21:44] LABS: CALCIUM 8.8 mg/dL (8.5-10.1)
[2021-01-06 21:45] LABS: ALBUMIN 3.6 g/dl (3.4-5.0); BLOOD UREA NITROGEN 7.6 mg/dL (7-18)
[2021-01-06 21:48] LABS: CREATININE 0.6 mg/dL (0.55-1.3)
[2021-01-06 21:50] LABS: BILIRUBIN,TOTAL 0.3 mg/dL (0.2-1); TOT PROT 7.1 g/dl (6.4-8.2)
[2021-01-06 23:07] LABS: EPI CELLS 20 /uL (0-25.1); HYALINE CASTS 3 /uL (0-3.1); PH,URINE 6.5 (5.0-8.0); URINE APPEARANCE CLEAR; URINE BACTERIA 85 /uL (0-1359); URINE BILIRUBIN NEGATIVE (NEGATIVE); URINE COLOR YELLOW; URINE GLUCOSE (UA) NEGATIVE (NEGATIVE); URINE KETONE TRACE (NEGATIVE); URINE LEUK ESTERASE TRACE (NEGATIVE); URINE NITRITE NEGATIVE (NEGATIVE); URINE PROTEIN NEGATIVE (NEGATIVE); URINE RBC 21 /uL (0-23.9); URINE UROBILINOGEN 0.2 mg/dL (0.2-1.0); URINE WBC 12 /uL (0-25.8)
== END 2021-01-06 23:00 | disposition home or self-care (01) ==
LOC: JER 20:21
DX: O20.0 Threatened abortion (principal); N83.202 Unspecified ovarian cyst, left side; Z3A.01 Less than 8 weeks gestation of pregnancy
CPT/HCPCS: 36415; 76801-TC; 80053; 81003; 84702; 85025; 86850; 86900; 86901; 87077; 87086; 99284-25

== ENCOUNTER 2021-12-15 19:16 | Emergency (ER) | payer OTHER ==
[2021-12-15 19:21] VITALS: BP 132/74; PULSE 96; TEMP 99; BMI 32.5
[2021-12-15 21:01] LABS: BASO % 0.6 % (0-2.0); EOS % 1.7 % (0-4.5); HEMATOCRIT 35.9 % (32.4-45.2); HEMOGLOBIN 12.3 GM/dL (10.7-15.3); MCH 28.1 pg (25.7-33.7); MCHC 34.2 g/dl (32.0-36.0); MEAN CELL VOLUME 82.2 fl (80-96); MEAN PLT VOLUME 7.7 fl (7.5-11.1); MONO % 5.6 % (3.8-10.2); NEUT % 56.1 % (42.8-82.8); PLATELET COUNT 368 10^3/uL (134-434); RBC 4.37 M/mm3 (3.60-5.2); WHITE BLOOD COUNT 9.3 K/mm3 (4.0-10.0)
[2021-12-15 21:20] LABS: INR 1.11 (0.83-1.09); PROTHROMBIN TIME (PATIENT) 12.8 SEC (9.7-13.0)
[2021-12-15 21:23] LABS: ACTIVATED PTT 32.7 SECONDS (25.2-36.5)
[2021-12-15 21:29] LABS: ALBUMIN 3.3 g/dl (3.4-5.0); BLOOD UREA NITROGEN 12.8 mg/dL (7-18); CALCIUM 8.7 mg/dL (8.5-10.1)
[2021-12-15 21:32] LABS: CREATININE 0.7 mg/dL (0.55-1.3)
[2021-12-15 21:34] LABS: BILIRUBIN,TOTAL 0.3 mg/dL (0.2-1); TOT PROT 6.8 g/dl (6.4-8.2)
== END 2021-12-15 22:51 | disposition left against medical advice (07) ==
LOC: JER 19:16
DX: R07.89 Other chest pain (principal); R06.02 Shortness of breath
CPT/HCPCS: 36415; 80053; 84484; 84703; 85025; 85610; 85730; 93005; 93010; 99284-25

== ENCOUNTER 2022-12-17 20:26 | Emergency (ER) | payer OTHER ==
[2022-12-17 20:49] VITALS: BP 141/84; PULSE 65; RESP 20; TEMP 98.5; BMI 35.2
[2022-12-17] MEDS ORDERED: KETOROLAC TROMETHAMINE 15 MG/ML VIAL IM ONE (23:17)
[2022-12-17] MEDS ORDERED: KETOROLAC TROMETHAMINE 15 MG/ML VIAL ONE (23:29)
[2022-12-18] MEDS ORDERED: diazePAM 5 MG TABLET PO ONE (01:12)
[2022-12-18] MEDS ORDERED: diazePAM 5 MG TABLET ONE (01:52)
== END 2022-12-18 02:51 | disposition home or self-care (01) ==
LOC: JER 20:26
PROC: 3E0333Z Introduction of Anti-inflammatory into Peripheral Vein, Percutaneous Approach (ICD-10-PCS; principal; 2022-12-17)
DX: M54.2 Cervicalgia (principal); V49.40XA Driver injured in collision with unspecified motor vehicles in traffic accident, initial encounter; W22.8XXA Striking against or struck by other objects, initial encounter; Y93.I9 Activity, other involving external motion
CPT/HCPCS: 72125-TC; 84703; 99284-25